=== PATIENT | female | born 1995 | race Caucasian/White ===

== ENCOUNTER 2022-02-04 11:56 | Emergency (ER) | payer OTHER, SELFPAY ==
[2022-02-04 12:13] VITALS: BP 122/81; PULSE 84; RESP 18; TEMP 36.8; O2SAT 99
--- NOTE | 2022-02-04 12:19 | ED.SKABFB ---
HPI - Skin/Abscess/Foreign Bdy General Chief complaint: Skin/Abscess/Foreign Body Stated complaint: rash Time Seen by Provider: 02/04/22 12:15 Source: patient Mode of arrival: ambulatory Limitations: no limitations History of Present Illness HPI narrative: Ms. Doshi is a 26-year-old female patient presenting to the clinic today with complaints of a rash on her abdomen, back, and chest. Reports that she went swimming on Friday in [place] and developed this rash there after. She reports that the rash is itchy but not painful. States she is tried some lotion it has helped some. Denies that the rash is spreading. Related Data Home Medications Medication Instructions Recorded Confirmed bupropion HCl 150 mg 24 hr tablet, 150 mg PO DAILY 02/04/22 02/04/22 extended release metformin 500 mg tablet 500 mg BID 02/04/22 02/04/22 norgestimate 0.25 mg-ethinyl 1 tablet DAILY 02/04/22 02/04/22 estradiol 35 mcg tablet (Rayna) Allergies Allergy/AdvReac Type Severity Reaction Status Date / Time banana AdvReac Gastrointestinal Verified 02/04/22 12:21 Upset Review of Systems Review of Systems: Pertinent positives per HPI. Patient denies any fever, chills, headache, visual changes, dizziness, cough, runny nose, sore throat, shortness of breath, chest pain, palpitations, nausea, vomiting, diarrhea, constipation, abdominal pain, or any urinary issues. PMFSH Comments At the time of my signature, I reviewed and agree with the nursing past medical, surgical, social, and family history. There is no relevant family history pertinent to the patient complaint. Exam Narrative: General: Well-developed, well nourished, in no apparent distress Head: Normocephalic, atraumatic. Cardio: Regular rate and rhythm, s1 and s2 normal, no murmur appreciated. Resp: Clear to auscultation bilaterally, no rhonchi, rales, wheezing or rubs. Integumentary: [place], warm, and dry, intact without lesion, pinpoint mildly raised red itchy rash without blistering or pustules. Course Course Emergency Course: Portions of this record may have been created with voice recognition software. Level of Care: Express Care Visit Vital Signs Vital signs: Vital Signs Temperature 36.8 C 02/04/22 12:13 Pulse Rate 84 02/04/22 12:13 Respiratory Rate 18 02/04/22 12:13 Blood Pressure 122/81 02/04/22 12:13 Pulse Oximetry 99 02/04/22 12:13 Oxygen Delivery Room Air 02/04/22 12:13 Temperature 36.8 C 02/04/22 12:13 Pulse Rate 84 02/04/22 12:13 Respiratory Rate 18 02/04/22 12:13 Blood Pressure 122/81 02/04/22 12:13 Pulse Oximetry 99 02/04/22 12:13 Oxygen Delivery Room Air 02/04/22 12:13 Vital signs reviewed MDM - Skin/Abscess/Foreign Bdy MDM Narrative Medical decision making narrative: At the time of visit patient is resting comfortably on the exam table. I suspect that she has a dermatitis rash from being in the [place]. I will send in a prescription for some triamcinolone cream as well as some prednisone to help alleviate her rash. Supportive measures were discussed with the patient she voiced understanding of discharge instructions and agrees to treatment plan. Differential Diagnosis Differential diagnosis: Likely cellulitis, eczema, insect bites and contact dermatitis Discharge Plan Discharge Clinical Impression: Dermatitis Patient Disposition: Home, Self-Care Condition: Stable Instructions: Antibiotic Form, Dermatitis (ED) Additional Instructions: Prednisone and triamcinolone cream as prescribed May take Benadryl 25 to 50 mg every 6 hours as needed for itching Avoid hot showers Avoid scratching May apply cool compresses to the affected areas to help alleviate itching Follow-up with your PCP in 3 to 5 days if symptoms persist or sooner if they worsen Prescriptions: New prednisone 20 mg tablet 40 mg PO DAILY 5 Days Qty: 10 0RF triamcinolone acetonide 0.1 % cream 1 applic
== END 2022-02-04 12:25 | disposition home or self-care (01) ==
PROVIDERS: Emergency Provider Nurse Practitioner Family; PCP Family Medicine
DX: L30.9 Dermatitis, unspecified (principal); E28.2 Polycystic ovarian syndrome; F41.9 Anxiety disorder, unspecified; F32.A Depression, unspecified
CPT/HCPCS: 99213; G0463

== ENCOUNTER 2023-03-15 12:57 | Emergency (ER) | payer OTHER, SELFPAY ==
--- NOTE | 2023-03-15 12:58 | ED.GENADULT ---
HPI - General Adult General Chief complaint: Skin/Abscess/Foreign Body Stated complaint: Lt Breast Irritation Time Seen by Provider: 03/15/23 12:58 Source: patient Mode of arrival: ambulatory Limitations: no limitations History of Present Illness HPI narrative: 19-year-old female patient presents to the [facility] with complaints of left breast pain for the past 2-3 days. Patient states she has had fevers as high as 101, left breast tenderness that goes to the nipple nipple to her armpit and states it feels very hot and tender to the touch. Patient states she has been exclusively pumping the breast milk. 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 Related Data Home Medications Medication Instructions Recorded Confirmed bupropion HCl 150 mg 24 hr tablet, 150 mg PO DAILY 02/04/22 03/15/23 extended release metformin 500 mg tablet 500 mg BID 02/04/22 03/15/23 blood sugar diagnostic (OneTouch 03/15/23 03/15/23 Ultra Test strips) vit#24-iron amino acid 1 tablet PO DAILY 03/15/23 03/15/23 chelat-folic acid 30 mg-975 mcg tablet Allergies Allergy/AdvReac Type Severity Reaction Status Date / Time banana AdvReac Intermediate Gastrointestinal Verified 03/15/23 13:00 Upset Review of Systems Review of Systems: CONSTITUTIONAL: Denies fever, chills, or sweats. EYES: Denies visual changes, redness, or discharge. ENT: Denies rhinorrhea, congestion, sore throat, or otalgia. CARDIOVASCULAR: Denies chest pain, palpitations, or edema. RESPIRATORY: Denies cough or dyspnea. GASTROINTESTINAL: Denies abdominal pain, nausea, vomiting, or diarrhea. GENITOURINARY: Denies dysuria or hematuria. SKIN: Denies rash or itching. Positive left breast pain MUSCULOSKELETAL: Denies back pain, joint pain, or myalgia. NEUROLOGIC: Denies headache, numbness, or weakness. PSYCHIATRIC: Denies anxiety or depression. PMFSH Surgical History Surgical History (Updated 03/15/23 @ 13:01 by ROYA Thomas) History of orthopedic surgery Right knee Comments At the time of my signature I agree with nursing past medical history, surgical, social, and family history. There is no relevant family history pertinent to the presenting complaint. Exam Narrative: GENERAL: Well-appearing, well-nourished, and in no acute distress. HEAD: Normocephalic, atraumatic. EYES: PERRLA and EOMI. ENT: Nares clear, no rhinorrhea or epistaxis. Mucous membranes moist. NECK: Supple. No lymphadenopathy CHEST: Clear to auscultation. No respiratory distress. HEART: Regular rate and rhythm. No murmur heard. Normal peripheral pulses. ABDOMEN: Soft, nontender, nondistended, normal active bowel sounds. EXTREMITIES: Normal range of motion. No edema. SKIN: Warm, dry, no rash. patient does have warmth noted to the left lateral breast no obvious erythema or streaking noted. No pus coming from the nipple. The left breast is very tender to the touch. NEURO: No focal deficits. Alert and oriented x3. Course Course Level of Care: Express Care Visit Vital Signs Vital signs: Vital Signs Temperature 37.3 C 03/15/23 13:05 Pulse Rate 105 H 03/15/23 13:05 Respiratory Rate 16 03/15/23 13:05 Blood Pressure 116/73 03/15/23 13:05 Pulse Oximetry 99 03/15/23 13:05 Oxygen Delivery Room Air 03/15/23 13:05 Temperature 37.3 C 03/15/23 13:05 Pulse Rate 105 H 03/15/23 13:05 Respiratory Rate 16 03/15/23 13:05 Blood Pressure 116/73 03/15/23 13:05 Pulse Oximetry 99 03/15/23 13:05 Oxygen Delivery Room Air 03/15/23 13:05 vital signs reviewed Medical Decision Making MDM Narrative Medical decision making narrative: Plan care patient is discharged home with antibiotics for mastitis. Discussed with patient that she can take Tylenol for pain and use warm compresses to help with pain. 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 Discussed with patient that shake it should continue to pump/dahiana
[2023-03-15 13:05] VITALS: BP 116/73; PULSE 105; RESP 16; TEMP 37.3; O2SAT 99
== END 2023-03-15 13:19 | disposition home or self-care (01) ==
PROVIDERS: Emergency Provider Nurse Practitioner Family; PCP Family Medicine
DX: N61.0 Mastitis without abscess (principal)
CPT/HCPCS: 99213; G0463

== ENCOUNTER 2024-10-27 07:27 | Outpatient (RCR) | payer OTHER, SELFPAY ==
[2024-09-18 09:40] VITALS: BP 124/62; PULSE 100
[2024-09-22 09:25] VITALS: BP 110/67; PULSE 93
[2024-09-25 09:28] VITALS: BP 109/67; PULSE 98
[2024-09-29 08:45] VITALS: BP 110/67; PULSE 92
[2024-10-02 09:46] VITALS: BP 115/66; PULSE 93
[2024-10-06 08:22] VITALS: BP 124/69; PULSE 98
[2024-10-09 14:12] VITALS: BP 121/65; PULSE 105
[2024-10-13 10:06] VITALS: BP 112/69; PULSE 88
--- NOTE | 2024-10-13 12:00 | PC.NURSE ---
Dr. Roman informed BPP 02/11, ULI is 15.8 cm, baby's growth is in the 18th percentile.
[2024-10-22 08:56] VITALS: BP 115/65; PULSE 97
--- NOTE | ~2024-10-27 | US_ITS ---
EXAMINATION: US OB follow up w BPP DATE: 09/29/2024 08:36 INDICATION: Intrauterine growth restriction. Third trimester. TECHNIQUE: Real-time pelvic ultrasound was performed. COMPARISON: Ultrasound 09/22/2024 FINDINGS: There is a single living fetus in breech presentation. The placenta is posterior and fundal. h eart rate is 150 beats per minute (bpm). The amniotic fluid index is 9.8 cm which is normal. The following biometric data were obtained: Biparietal diameter (BPD): 8.6 cm; head circumference (HC): 31.2 cm; abdominal circumference (AC): 30 .8 cm; femur length (FL): 6.8 cm. These measurements are concordant. Estimated weight is 2523 g +/- 378 g, which correlates with the 45th percentile when 11/04/24 is used as estimated date of delivery. As single measurements, these parameters are each equal to the following estimated gestational ages: BPD: 34 weeks 6 days. HC: 34 weeks 6 days. AC: 34 weeks 5 days. FL: 34 weeks 6 days. estimated gestational age based solely on measurements from this exam is 34 weeks 6 days +/- 2 weeks 3 days. Biophysical profile performed by the technologist: breathing (30 sec sustained breathing in 30 minutes): 2 out of 2 movement (3 gross body movements in 30 minutes): 2 out of 2 tone (one episode of xiunmto-dnmpdxevq-dpzuzjo limb movement): 2 out of 2 Amniotic fluid pocket (2 cm): 2 out of 2 Total score: 8 out of 8 IMPRESSION: 1. Single living fetus in breech presentation. 2. Estimated weight is 2523 g +/- 378 g, which correlates with the 45th percentile when 11/04/24 is used as estimated date of delivery. 3. Biophysical profile 8 out of 8. Reviewed, dictated and finalized at location []
--- NOTE | ~2024-10-27 | US_ITS ---
EXAMINATION: US OB follow up w BPP DATE: 10/27/2024 09:21 INDICATION: Small for gestational age during third trimester of TECHNIQUE: Real-time pelvic ultrasound was performed. The interpreting radiologist was not present fo r the study. COMPARISON: None. FINDINGS: There is a single living fetus in vertex presentation. The placenta is posterior fundal. heart rate is 148 beats per minute (bpm). Amniotic fluid volume is subjectively normal pocket measurement of 7.4 cm The following biometric data were obtained: BPD: 9.0 cm -> 36 weeks 2 days Head circumference: 33.0 cm -> 37 weeks 4 days Abdominal circumference: 33.4 cm -> 37 weeks 2 days Femur length: 7.0 cm -> 35 weeks 6 days These measurements are concordant. Head circumference to abdominal circumference ratio: 0.99 (normal range 0.92-1.05). Estimated weight: 3080 g (+/-) 462 g, 6 lbs 13oz (+/-) 1 lb. 0 oz Biophysical profile performed by the technologist: breathing (30 sec sustained breathing in 30 minutes): 2 out of 2 movement (3 gross body movements in 30 minutes: 2 out of 2 tone (one episode of xeghlcl-uwpekmnkx-zmudaak limb movement): 2 out of 2 Amniotic fluid pocket (2 cm): 2 out of 2 Total score: 8 out of 8 IMPRESSION: 1. Single living fetus in vertex presentation. 2. Biophysical profile 8 out of 8. 3 Estimated weight is 23rd percentile by Hadlock criteria when 11/04/2024 is used as the estimate d date of delivery (VANCE). Please correlate with clinical information or earlier ultrasounds for most accurate VANCE. Reviewed, dictated and finalized at location A. IMPRESSION: 1. Single living fetus in vertex presentation. 2. Biophysical profile 8 out of 8. 3 Estimated weight is 23rd percentile by Hadlock criteria when 11/04/2024 i s used as the estimated date of delivery (VANCE). Please correlate with clinical information or earlier ultrasounds for most accurate VANCE.
--- NOTE | ~2024-10-27 | US_ITS ---
EXAMINATION: US OB follow up w BPP DATE: 10/13/2024 10:07 INDICATION: Estimated weight/growth percentile, amniotic fluid index and biophysical profile du ring third trimester . TECHNIQUE: Real-time pelvic ultrasound was performed. The interpreting radiologist was not present fo r the study. COMPARISON: None. FINDINGS: There is a single living fetus in vertex presentation. The placenta is posterior fundal. heart rate is 148 beats per minute (bpm). Normal amniotic fluid index of 15.8 cm. The following biometric data were obtained: BPD: 8.8 cm -> 35 weeks 3 days Head circumference: 32.7 cm -> 37 weeks 1 days Abdominal circumference: 31.5 cm -> 35 weeks 3 days Femur length: 6.7 cm -> 34 weeks 3 days These measurements are concordant. Head circumference to abdominal circumference ratio: 1.04 (normal range 0.93-1.09). Estimated weight: 2653 g (+/-) 398 g, 5 lbs 14 oz (+/-) 14 oz Biophysical profile performed by the technologist: breathing (30 sec sustained breathing in 30 minutes): 2 out of 2 movement (3 gross body movements in 30 minutes: 2 out of 2 tone (one episode of rndslit-qsvkpykal-ubvxjkn limb movement): 2 out of 2 Amniotic fluid pocket (2 cm): 2 out of 2 Total score: 8 out of 8 IMPRESSION: 1. Single living fetus in vertex presentation. 2. Normal amniotic fluid index of 15.8 cm. 3. Biophysical profile 8 out of 8. 4. Estimated weight is 18th percentile by Hadlock criteria when 11/04/2024 is used as the estima heather date of delivery (VANCE). Please correlate with clinical information or earlier ultrasounds for mos t accurate VANCE. Reviewed, dictated and finalized at location B. IMPRESSION: 1. Single living fetus in vertex presentation. 2. Normal amniotic fluid index of 15.8 cm. 3. Biophysical profile 8 out of 8. 4. Estimated weight is 18th percentile by Hadlock criteria when 11/04/2024 is used as the estimated date of delivery (VANCE). Please correlate with clinica l information or earlier ultrasounds for most accurate VANCE.
--- NOTE | ~2024-10-27 | US_ITS ---
EXAMINATION: US OB BPP wo non-stress DATE: 10/22/2024 08:54 INDICATION: Small for gestational age. Assess biophysical profile during third trimester . TECHNIQUE: Real-time pelvic ultrasound was performed. The interpreting radiologist was not present fo r the study. COMPARISON: 10/23/2024 FINDINGS: There is a single living fetus in vertex presentation. The placenta is posterior fundal. heart rate is 140 beats per minute (bpm). Amniotic fluid volume is subjectively normal with normal deepest vertical pocket measurement of 5.0 cm. Biophysical profile performed by the technologist: breathing (30 sec sustained breathing in 30 minutes): 2 out of 2 movement (3 gross body movements in 30 minutes): 2 out of 2 tone (one episode of fegwzas-kfddwjmmw-arjcdmu limb movement): 2 out of 2 Amniotic fluid pocket (2 cm): 2 out of 2 Total score: 8 out of 8 IMPRESSION: 1. Single living fetus in vertex presentation with heart rate of 140 bpm. 2. Biophysical profile 8 out of 8. Reviewed, dictated and finalized at location A.
--- NOTE | ~2024-10-27 | US_ITS ---
EXAMINATION: US OB BPP wo non-stress DATE: 09/22/2024 09:00 INDICATION: Small for gestational age during third trimester TECHNIQUE: Real-time pelvic ultrasound was performed. The interpreting radiologist was not present fo r the study. COMPARISON: None. FINDINGS: There is a single living fetus in vertex presentation. The placenta is posterior fundal. heart rate is 140 beats per minute (bpm). Amniotic fluid volume is subjectively normal with normal deepest vertical pocket measurement of 5.5 cm. Biophysical profile performed by the technologist: breathing (30 sec sustained breathing in 30 minutes): 2 out of 2 movement (3 gross body movements in 30 minutes): 2 out of 2 tone (one episode of vcorgrw-krvtkwzbp-ljiwpwc limb movement): 2 out of 2 Amniotic fluid pocket (2 cm): 2 out of 2 Total score: 8 out of 8 IMPRESSION: 1. Single living fetus in vertex presentation with heart rate of 140 bpm. 2. Biophysical profile 8 out of 8. Reviewed, dictated and finalized at location A.
--- NOTE | ~2024-10-27 | US_ITS ---
EXAMINATION: US OB BPP wo non-stress DATE: 10/06/2024 09:16 INDICATION: Intrauterine growth retardation during third trimester TECHNIQUE: Real-time pelvic ultrasound was performed. The interpreting radiologist was not present fo r the study. COMPARISON: None. FINDINGS: There is a single living fetus in vertex presentation. The placenta is posterior fundal. heart rate is 140 beats per minute (bpm). Amniotic fluid volume is subjectively normal with normal deepest vertical pocket measurement of 6.5 cm Biophysical profile performed by the technologist: breathing (30 sec sustained breathing in 30 minutes): 2 out of 2 movement (3 gross body movements in 30 minutes): 2 out of 2 tone (one episode of jgnokqw-ungwllcfg-dkpfplt limb movement): 2 out of 2 Amniotic fluid pocket (2 cm): 2 out of 2 Total score: 8 out of 8 IMPRESSION: 1. Single living fetus in vertex presentation with heart rate of 140 bpm. 2. Biophysical profile 8 out of 8. Reviewed, dictated and finalized at location A.
[2024-10-27 08:39] VITALS: BP 112/71; PULSE 92
--- NOTE | 2024-10-27 09:30 | PC.NURSE ---
Dr. Roman returned page. Notified him of reactive NST, BPP 02/11, ULI 15.8 and EFW 18th percentile
== END 2024-12-17 23:59 | disposition home or self-care (01) ==
LOC: ANHOBOP 07:27
PROVIDERS: PCP Nurse Practitioner Family; Visit Provider Obstetrics & Gynecology
DX: O36.5930 Maternal care for other known or suspected poor fetal growth, third trimester, not applicable or unspecified (principal); Z3A.33 33 weeks gestation of pregnancy; Z3A.34 34 weeks gestation of pregnancy; Z3A.35 35 weeks gestation of pregnancy; Z3A.36 36 weeks gestation of pregnancy; Z3A.38 38 weeks gestation of pregnancy
CPT/HCPCS: 59025; 76816; 76819

== ENCOUNTER 2024-11-04 15:57 | Inpatient (IN) | payer OTHER, SELFPAY ==
[2024-11-04] VITALS (114 sets, daily range): BP systolic 64–153; BP diastolic 22–136; PULSE 81–141; TEMP 36.7–37.1; O2SAT 95–100; BMI 39.7
--- OUTSIDE RECORDS SUMMARY | 2024-11-04 16:15 | XMS_ITS | Encounter Summary ---
Author Organization [facility] Address [address] [place] [id number] Care Team Providers Care Industrial Tech Instructor Name Role Phone Yessica Goldman NP Primary Care Provider + [phone] Reason for Visit * Reason Comments Ultrasound (SCAN) Encounter Details Date Type Department Care Team ([facility] Contact Info) Description 10/27/2024 Scan HEALTH INFO [facility] Scanned, Doc Med Group Ultrasound (SCAN) Social History Tobacco Use Types Packs/Day Years Used Date Smoking Tobacco: Never Smokeless Tobacco: Never Comments:nonsmoker Alcohol Use Standard Drinks/Week Comments Not Currently 0 (1 standard drink = 0.6 oz pur e alcohol) Humiliation, Afraid, Rape, and Kick questionnair e Answer Date Recorded Within the last year, have y ou been afraid of your partner or ex-partner? No 02/06/2023 Within the last year, have y ou been humiliated or emotionally abused in other ways by your partner or ex-partner? No Within the last year, have y ou been kicked, hit, slapped, or otherwise physically hurt by your partner or ex-partner? No 02/06/2023 Within the last year, have y ou been raped or forced to have any kind of sexual activity by your partner or ex-partner? No 02/06/2023 Social Connection and Isolation Panel [NHANES] A nswer Date Recorded In a typical week, how many times do you talk on the phone with family, friends, or neighbors? Three times a week 02/06/2023 How often do you get togethe r with friends or relatives? Three times a week 02/06/2023 How often do you attend chur or anabaptist services? Patient declined 02/06/2023 Do you belong to any clubs o r organizations such as yazdanism groups, unions, fraternal or athletic groups, or school groups? Patient declined 02/06/2023 How often do you attend meet ings of the clubs or organizations you belong to? Patient declined 02/06/2023 Are you , , di vorced, , never , or living with a partner? 02/06/2023 AUDIT-C Answer Date Recorded Q1: How often do you have a drink containing alcohol? Never 02/06/2023 Q2: How many drinks containi ng alcohol do you have on a typical day when you are drinking? Patient does not drink Q3: How often do you have si x or more drinks on one occasion? Never 02/06/2023 Overall Financial Resource Strain (CARDIA) Answe r Date Recorded How hard is it for you to pa y for the very basics like food, housing, medical care, and heating? Not hard at all 02/06/2023 PHQ-2 Answer Date Recorded Patient Health Questionnaire-2 Score 0 10/25/2024 Exercise Vital Sign Answer Date Recorde d On average, how many days pe r week do you engage in moderate to strenuous exercise (like a brisk walk)? 3 days 02/06/2023 On average, how many minutes do you engage in exercise at this level? 30 min 02/06/2023 Hunger Vital Sign Answer Date Recorded Within the past 12 months, y ou worried that your food would run out before you got the money to buy more. Never true 02/07/20 23 Within the past 12 months, t he food you bought just didn't last and you didn't have money to get more. Never true 02/06/2023 PRAPARE - Transportation Answer Date Re corded In the past 12 months, has l ack of transportation kept you from medical appointments or from getting medications? No 09/2022 In the past 12 months, has l ack of transportation kept you from meetings, work, or from getting things needed for daily living? No 02/06/2023 Housing Stability Vital Sign Answer Ayo e Recorded In the last 12 months, was t here a time when you were not able to pay the mortgage or rent on time? No 02/06/2023 In the last 12 months, how many places have you lived? 1 02/06/2023 In the last 12 months, was t here a time when you did not have a steady place to sleep or slept in a mcc (including now)? No 02/06/2023 Comments Yes Sex and Gender Information Value Date Recorded Sex Assigned at Not on file Legal Sex Female 8:50 PM CDT Gender Identity Not on file Sexual Orientation Not on file Occupation Industry Job Start Date Job End Date Not on file Not on file Not on file Not on file Not on file Not on file Not on file Not on file documented as of this encounter Functional Status * Are you deaf or do you have serious difficulty hearing Answer Date of Assessment Author Status No 02/06/2023 9:31 AM CDT Kira Akers R N Active * Are you blind or do you have serious difficulty seeing, even when wearing glasses? Answer Date of Assessment Author Status No 02/06/2023 9:31 AM CDT Kira Akers R N Active * Do you have serious difficulty walking or climbing stairs? Answer Date of Assessment Author Status No 02/06/2023 9:31 AM MANJINDERT Kira Akers R N Active * Do you have difficulty dressing or bathing? Answer Date of Assessment Author Status No 02/06/2023 9:31 AM CDT Kira Akers R N Active * Because of a physical, mental, or emotional condition, do you have difficulty doing errands alone such as visiting a doctor's office or shopping? Answer Date of Assessment Author Status No 02/06/2023 9:31 AM Kira Jo R N Active documented as of this encounter Mental Status * Because of a physical, mental, or emotional condition, do you have serious difficulty concentrating, remembering, or making decisions? Answer Entry Date Author Status No 02/06/2023 9:31 AM Kira Jo R N Active documented in this encounter Plan of Treatment Not on file documented as of this encounter Procedures Procedure Name Priority Date/Time Associated Diagnosis Comments ULTRASOUND GENERIC (SCAN ORDER) 10/27/2024 documented in this encounter Results * ULTRASOUND GENERIC (SCAN ORDER) (10/27/2024) Anatomical Region Laterality Modality Other 10/27/2024 us Doc Med Group Scanned SCANNING Final Resu lt documented in this encounter Visit Diagnoses Not on filedocumented in this encounter Additional Health Concerns Assessment Noted Time PHQ-9 Depression Total Score: 10 024 3:47 PM CDT documented as of this encounter Care Teams Industrial Tech Instructor Relationship Specialty Start Date End Date Yessica Goldman, BEAN [id number] [facility] [address] [place], [place] [id number] PCP - General Nurse Practitioner Family 07/21/23 documented as of this encounter
--- OUTSIDE RECORDS SUMMARY | 2024-11-04 16:15 | XMS_ITS | Clinical Summary ---
Author Organization [facility] Address [address] [place] [address] Care Team Providers Care Special Diet Cook Name Role Phone Yessica Goldman NP Primary Care Provider [phone] Allergies No known active allergies Medications Cholecalcifero l (VITAMIN D-3 OR) Take 1,000 mg by mouth daily. Active buPROPion XL (WELLBUTRIN XL) 150 MG 24 hr tabletIndicati ons:IRAJ (generalized anxiety disorder) Take 1 tablet (150 mg total) by mouth daily. 90 tablet 1 12/31/19 24 Active levothyroxine (SYNTHROID) 25 MCG tablet Take 1 tablet (25 mcg total) by mouth daily. Active aspirin EC (ECOTRIN) 81 MG tablet Take 1 tablet (81 mg total) by mouth daily. Active ( VITAMINS) 28-0.8 MG tablet Take 1 tablet by mouth daily. Active metFORMIN 500 MG tablet Take 2 tablets (1,000 mg total) by mouth daily. 04/02/20 20 025 Discontinued(Pt . elected to discontinue med) norgestimate-e thinyl estradiol (FRANCIS) 0.25-35 MG-MCG tablet Take 1 tablet by mouth daily. 025 Discontinued Active Problems Problem Noted Date Diagnosed Date Vaginal delivery (HHS/HCC) 02/09/2023 (HHS/HCC) 02/06/2023 Gestational diabetes (HHS/HCC) 02/06/2023 IRAJ (generalized anxiety disorder) 11/22/2021 Moderate episode of recurrent major depressive d isorder 11/22/2021 Obesity 10/02/2017 Comments Yes Resolved Problems Problem Noted Date Diagnosed Date Resolved Date Depression 10/02/2017 11/22/2021 Encounter for preventive health examination 10/02/2017 03/17/2020 Wears contact lenses 10/02/2017 020 Wears glasses 10/02/2017 03/17/2020 Encounters Date Type Department Care Team Description 10/27/2024 Scan HEALTH INFO SRVCS Scanned, [facility] Ultrasound (SCAN) 10/25/2024 10:00 AM CDT Office Visit [facility] Internal [facility] [address] [phone] Yessica Goldman, SALES SERVICE COORDINATOR Cough (Head congestion, drainage, sore throat X 1 week ) 10/25/2024 Travel 10/22/2024 Scan HEALTH INFO SRVCS Scanned, Doc [facility] Ultrasound (SCAN) 10/13/2024 Scan HEALTH INFO SRVCS Scanned, Doc [facility] Ultrasound (SCAN) 10/06/2024 Scan HEALTH INFO SRVCS Scanned, Doc [facility] Ultrasound (SCAN) 09/29/2024 Scan HEALTH INFO SRVCS Scanned, Doc [facility] Ultrasound (SCAN) 09/22/2024 Scan HEALTH INFO SRVCS Scanned, Doc [facility] Ultrasound (SCAN) from Last 3 Months Immunizations Immunization Administration Dates Next Due COVID-19 Vaccine (Generic) 11/16/2020 Diphtheria and Tetanus Toxoi ds Adsorbed 02/14/2009 Dtap (Acel-Immune) 01/25/2000, 6,02/25/1995,01/02,1994 Hepatitis A (Havrix [address]) 02/14/2009 Hepatitis B Pediatric 06/12/1995,1994,10/1994 Hib (Prohibit) 01/19/1996, 5,01/02/1995,11/07 Influenza (Generic) 07/30/2021(Deferred: Patient Refused),05/28/2013,07/19/2012 Influenza Adult (Generic) 07/18/2022 MMR (MMRII) 01/25/2000,10/02/1995 Meningococcal (Menomune) 02/14/2009 PFIZER COVID-19 (ORIGINAL FO RMULATION, PURPLE CAP) mRNA, LNP-S, PF, 30 MCG/0.3 ML DOSE 02/15/2021 Polio IPV (Ipol) 01/25/2000 Polio Opv (Generic) 01/19/1996, 5,01/02/1995,11/07 Tdap (Generic) 08/09/2024,12/09/2022 Family History Medical History Relation Comments Hyperlipidemia Father Arthritis Maternal Grandmother Diabetes Maternal Grandmother Miscarriages / Stillbirths Maternal Grandmother Hypertension Mother Cancer Paternal Grandfather Depression Paternal Grandmother Mental Health Paternal Grandmother Miscarriages / Stillbirths Paternal Grandmother Relation Status Comments Father Alive Maternal Grandmother Mother Alive Paternal Grandfather Paternal Grandmother Social History Tobacco Use Types Packs/Day Years Used Date Smoking Tobacco: Never Smokeless Tobacco: Never Tobacco Cessation:Counseling Given: Not Answered Comments:nonsmoker Alcohol Use Standard Drinks/Week Comments Not [...] 02/06/2023 How often do you attend chur ch or denominational services? Patient declined 02/06/2023 Do you belong [...] place to sleep or slept in a retirement (including now)? No 02/06/2023 Comments Yes Sex [...] file Not on file Not on file Last Filed Vital Signs Vital Sign Reading Time Taken Comments Blood Pressure 115/78 10/25/2024 9:54 AM CDT Pulse 111 10/25/2024 9:54 AM CDT Temperature 36.8 C (98.2 F) 10/25/2024 9:54 AM CDT Respiratory Rate 20 10/25/2024 9:54 AM CDT Oxygen Saturation 96% 10/25/2024 9:54 AM CDT Inhaled Oxygen Concentration - - Weight 111.9 kg (246 lb 9.6 oz) 10/25/2024 9:54 AM CDT Height 162.6 cm (5' 4 ) 10/25/2024 9:54 AM CDT Body Mass Index 42.33 10/25/2024 9:54 AM CDT Plan of Treatment Health Maintenance Due Date Last Done Comments Cervical Cancer Screening Pap Smear (Age 30 to 64) Every 3 Years 1994 Annual Physical 10/05/2023 10/04/2022 COVID-19 Vaccine ( season) 2024 03/08/2021, 02/15/2021, 11/16/2020 Cervical Cancer Screening Pap with HPV Testing (Age 30 to 64) Every 5 Years 2024 Cervical Cancer Screening with HPV 2024 DTaP, Tdap and Td Vaccines (8 - Td or Tdap) 08/09/2034 08/09/2024, 12/09/2022, 02/14/2009, Additional history exists RSV Immunization or 60+ Years (1 - 1-dose 75+ series) 2069 Hepatitis B Vaccines Completed 06/12/1995, 1994, 1994 Meningococcal Vaccine Aged Out 02/14/2009 No ching jose eligible based on patient's age to complete this topic Hepatitis C Completed 03/24/2024, 07/17/2022 PHQ-2 (Physician [place]) Completed 10/25/2024 HPV Vaccines Aged Out No longer eligi ble based on patient's age to complete this topic Meningococcal B Vaccine Aged Out No l onger eligible based on patient's age to complete this topic Pneumococcal Vaccine: Pediatrics (0 to 5 Years) and At-Risk Patients (6 to 49 Years) Aged Out No longer eligible based on patient's age to complete this topic RSV Immunizations Under 20 Months Aged Out No longer eligible based on patient's age to complete this topic Procedures Procedure Name Priority Date/Time Associated Diagnosis Comments ULTRASOUND GENERIC (SCAN ORDER) 10/27/2024 ULTRASOUND GENERIC (SCAN ORDER) 10/22/2024 ULTRASOUND GENERIC (SCAN ORDER) 10/13/2024 ULTRASOUND GENERIC (SCAN ORDER) 10/06/2024 ULTRASOUND GENERIC (SCAN ORDER) 09/29/2024 ULTRASOUND GENERIC (SCAN ORDER) 09/22/2024 HEPATITIS C ANTIBODY Routine 03/24/2024 3:17 PM CDT Lactating mother (HHS/HCC) Encounter for other specified screening (HHS/HCC) Obesity complicating peripregnancy, antepartum, unspecified trimester (HHS/HCC) Obesity, unspecified Endocrine, nutritional and metabolic diseases complicating , unspecified trimester (HHS/HCC) from Last 3 Months or Most Recently Relevant to Health Maintenance Results * ULTRASOUND GENERIC (SCAN ORDER) (10/27/2024) Only the most recent of6 resultswithin the time period is included. Anatomical Region Laterality Modality Other 10/27/2024 us [facility] Scanned SCANNING Final Resu lt * HEPATITIS C ANTIBODY (03/24/2024 3:17 PM CDT) HEPATITIS C AB NON-REACTI VE NON-REACTI VE 03/25/2024 12:31 PM CDT [facility] 03/24/2024 3:17 PM CDT us Gaviota Benítez CNM [facility] Final Result [facility] [address] [place] [address], from Last 3 Months or Most Recently Relevant to Health Maintenance Insurance [employer] Advance Directives * Full Code (Latest Code Status on File) Date Activated Date Inactivated Comments 02/06/2023 7:56 AM 02/07/2023 4:29 PM * Full Code Date Activated Date Inactivated Comments 02/02/2023 10:55 AM 02/02/2023 4:02 PM * Full Code Date Activated Date Inactivated Comments 02/01/2023 11:41 AM 02/01/2023 1:43 PM * Full Code Date Activated Date Inactivated Comments 01/25/2023 10:32 AM 01/25/2023 1:45 PM * Full Code Date Activated Date Inactivated Comments 01/17/2023 7:44 AM 01/17/2023 10:14 AM Care Teams Special Diet Cook Relationship Specialty [place] [id number] [address] PCP - General Nurse Practitioner Family 07/21/23
--- OUTSIDE RECORDS SUMMARY | 2024-11-04 16:15 | XMS_ITS | Encounter Summary ---
Author Organization [facility] Address [address] [place] [address] Care Team Providers Care Manager Statistical Programming Name Role Phone Chiynerefaizan Mónica [facility] Primary Care Provider + None, Provider Primary Care Provider Yessica Nelson NP Primary Care Provider [phone] Encounter Details Date Type Department Care Team (Late Contact Info) Description 07/04/2022 [employer] Message [employer] [facility] Family [facility] [address] [place] [phone] [employer]), [facility] Provider Appointment Social History Tobacco Use Types Packs/Day Years Used Date Smoking Tobacco: Never Smokeless Tobacco: Never Comments:nonsmoker Alcohol Use Standard Drinks/Week Comments Yes 0 (1 standard drink = 0.6 oz pur e alcohol) rare AUDIT-C Answer Date Recorded Frequency of Alcohol Consumption Never 11/20/2018 Average Number of Drinks Not on file 019 Frequency of Binge Drinking Not on file 11/04 PHQ-2 Answer Date Recorded PHQ-2 Score - If the patient scores above 3, please move on to questions 3-9 3 11/19/2021 Comments No Sex and Gender Information Value Date Recorded [...] on file documented as of this encounter Plan of Treatment Not on file documented as of this encounter Visit Diagnoses Not on filedocumented in this encounter Additional Health Concerns Infection Onset Date Last Indicated Resolved Time COVID-19 Rule Out 01/22/2023 01/22/2023 01/22/2023 10:25 AM CDT COVID-19 Rule Out 01/22/2023 01/22/2023 01/22/2023 1:24 PM CDT COVID-19 Rule Out 01/22/2023 01/22/2023 01/24/2023 11:00 AM CDT COVID-19 Rule Out 07/02/2023 07/02/2023 07/02/2023 11:29 AM BISQUE CLEANER COVID-19 Rule Out 07/02/2023 07/02/2023 07/02/2023 11:32 AM BISQUE CLEANER COVID-19 Rule Out 07/02/2023 07/02/2023 07/02/2023 1:07 PM BISQUE CLEANER Assessment Noted Time PHQ-9 Depression Total Score: 10 11/19/ 022 2:17 PM CDT documented as of this encounter Care Teams Manager Statistical Programming Relationship Specialty Start Date End Date Mónica De La O FNP- PCP - General Nurse Practitioner Family 07/30/2104/07/23 None, Provider, PCP - General UNKNOWN PHYSICIAN SPECIALTY 07/02/23 Yessica Goldman, FLIGHT FOLLOWER [id number] [address] PCP - General Nurse Practitioner Family 07/21/23 documented as of this encounter
--- OUTSIDE RECORDS SUMMARY | 2024-11-04 16:15 | XMS_ITS | Encounter Summary ---
Author Organization [facility] Address [address] [place] [address] Care Team Providers Care Cake Inspector Name Role Phone Hernan Bond MD Primary Care Provider [phone] Mónica De La O [facility] Primary Care Provider + None, Provider Primary Care Provider Yessica Nelson NP Primary Care Provider [phone] Encounter Details Date Type Department Care Team (Late st Contact Info) Description 02/28/2021 [id number] Message Enc [facility] Family [facility] Internal Medicine [facility] [address] [place] [phone] Mónica De La O [place] [address] [place] [phone] RE: Medication Questions Social History Tobacco Use Types Packs/Day Years Used Date Smoking Tobacco: Never Smokeless Tobacco: Never Alcohol Use Standard Drinks/Week Comments Yes 0 (1 standard drink = 0.6 oz pur e alcohol) rare AUDIT-C Answer Date Recorded Frequency of Alcohol Consumption Never 11/20/2018 Average Number of Drinks Not on file 019 Frequency of Binge Drinking Not on file 11/04 PHQ-2 Answer Date Recorded PHQ-2 Score - If the patient scores above 3, please move on to questions 3-9 0 12/11/2020 Comments No Sex and Gender Information Value [...] Rule Out 07/02/2023 07/02/2023 07/02/2023 11:29 AM DIRECTOR SOCIAL SERVICE COVID-19 Rule Out 07/02/2023 07/02/2023 07/02/2023 11:32 AM DIRECTOR SOCIAL SERVICE COVID-19 Rule Out 07/02/2023 07/02/2023 07/02/2023 1:07 PM DIRECTOR SOCIAL SERVICE Assessment Noted Time PHQ-9 Depression Total Score: 0 12/12/19 11:11 AM CDT documented as of this encounter Care Teams Cake Inspector Relationship Specialty [place] [address] [facility] [place] [address] PCP - General FAMILY PRACTICE 11/19/18 07/29/21 Mónica De La O FNP- [id number] [facility] [address] PCP - General Nurse Practitioner Family 07/30/2104/07/23 None, Eric, PCP - General UNKNOWN PHYSICIAN SPECIALTY 07/02/23 [place] [id number] [facility] [address] [address] PCP - General Nurse Practitioner Family 07/21/23 documented as of this encounter
--- OUTSIDE RECORDS SUMMARY | 2024-11-04 16:16 | XMS_ITS | Clinical Summary ---
Author Organization [facility] [employer] Address [address] [place] [address] Care Team Providers Care Case Making Machine Operator Name Role Phone Jennifer Knutson MD Unavailable Source Comments [facility] [employer],non-owned Affiliates and Associated Physician Practices is amultiple site organization consisting of ambulatory clinics and hospital sitesin [place], [place], [place] and [place]. This disclosure is being madepursuant to the Care Everywhere program and may not contain all information available regarding this patient. Last updated 18.[facility] [employer] Allergies No known active allergies Medications * Be aware that medications may not be up to date on this document. Alwaysverify current medications with the patient. levothyroxine (Synthroid) 25 MCG tablet Take 1 (one) tablet by mouth once daily 04/06/2024 Active metFORMIN (Glucophage) 500 MG tablet Take 1 (one) tablet by mouth 2 times daily with morning and evening meal 11/19/2019 Active buPROPion XL 24hr (Wellbutrin-XL) 150 MG tablet Take 1 (one) tablet by mouth once daily 04/20/2021 Active Vit-DSS-Fe Fum-FA ( vitamin with iron) tablet Take 1 (one) tablet by mouth once daily Active vitamin D, ergocalciferol, (Drisdol) 1.25 MG (56478 UT) capsule Take 1 (one) capsule by mouth every 30 days Active aspirin EC (Ecotrin) 81 MG tablet Take 1 (one) tablet by mouth once daily Active Active Problems Problem Noted Date Diagnosed Date Glucose intolerance of 06/21/2024 Estimated Date of Delivery Comme nts Yes 11/04/2024 Based on last me nstrual period of 01/29/2024 Encounters Date Type Department Care Team Description 09/14/2024 7:40 AM CDT - 09/14/2024 11:59 PM CDT Hospital Encounter [facility] [address] [place] [address] Ladonna Harris MD Discharge Disposition: Home or Self Care 09/14/2024 7:30 AM CDT - 09/14/2024 7:39 AM CDT Hospital Encounter [facility] [address] [place] [id number] Ladonna Harris MD Discharge Disposition: Home or Self Care 09/06/2024 7:30 AM COFFEE BREAK ATTENDANT - 09/06/2024 11:59 PM COFFEE BREAK ATTENDANT Hospital Encounter [facility] [address] [place] [id number] Troy Kong MD Discharge Disposition: Home or Self Care 08/17/2024 Telephone [facility]/ EVALUATION UNIT [address] [place] [address] Gali Veliz APRN-ROTOR CASTING MACHINE SETUP OPERATOR Results 08/12/2024 Telephone [facility] MATERNAL/ EVALUATION UNIT [address] [place] [address] Bridgette Roman MD Results 08/11/2024 Orders Only [facility] MATERNAL/ EVALUATION UNIT [address] [place] [phone] Loretta Roach MD 08/10/2024 Telephone [facility] MATERNAL/ EVALUATION UNIT [address] [place] [phone] Joana Salvador Appointment 08/10/2024 Telephone [facility] MATERNAL/ EVALUATION UNIT [address] [place] [address] Joana Salvador Appointment 08/09/2024 7:20 AM COFFEE BREAK ATTENDANT - 08/09/2024 11:59 PM COFFEE BREAK ATTENDANT Hospital Encounter [facility] MATERNAL/ EVALUATION UNIT [address] [place] [address] Deepti Aragon MD Gross, Gilad A, MD Schell, Katherine A, ASSOCIATE ENGINEER-ROTOR CASTING MACHINE SETUP OPERATOR Discharge Disposition: Home or Self Care 08/09/2024 7:20 AM COFFEE BREAK ATTENDANT - 08/09/2024 11:59 PM COFFEE BREAK ATTENDANT Hospital Encounter [facility] MATERNAL/ EVALUATION UNIT [address] [place] [address] Deepti Aragon MD Gross, Gilad A, MD Discharge Disposition: Home or Self Care 08/09/2024 Travel from Last 3 Months Immunizations Immunization Administration Dates Next Due DT (AGE 7-ADULT) 02/14/2009 DTaP VACCINE IM (6wk-6yrs) 01/25/2000,,02/25/1995,01/02/1995,11/07 HEP A PEDS 2 DOSE 02/14/2009 HEP B VACCINE, PED/ADOL 06/12/1995,1994, HIB BOOSTER 01/19/1996,02/25/1995,01/02/1995 ,1994 INFLUENZA VACCINE 05/28/2013,07/19/2012 MENINGOCOCAL MENINGITIS 02/14/2009 MMR 01/25/2000,10/02/1995 POLIO IPV 01/25/2000 POLIO OPV 01/19/1996,02/25/1995,01/02/1995 ,1994 TDAP (7yrs+) 08/09/2024 Family History Medical History Relation Name Comments Diabetes - Type 2 Maternal Grandmother Hypertension Maternal Grandmother Renal Disease Maternal Grandmother Hypertension Mother Hypertension Paternal Grandmother Relation Name Status Comments Maternal Grandmother Mother Paternal Grandmother Social History Tobacco Use Types Packs/Day Years Used Date Smoking Tobacco: Never Smokeless Tobacco: Never Tobacco Cessation:Counseling Given: Not Answered Alcohol Use Standard Drinks/Week Comments Not Currently 0 (1 standard drink = 0.6 oz pur e alcohol) AUDIT-C Answer Date Recorded Q1: How often do you have a drink containing alcohol? Never 06/20/2024 Q2: How many drinks containi ng alcohol do you have on a typical day when you are drinking? Patient does not drink Q3: How often do you have si x or more drinks on one occasion? Never 06/20/2024 Overall Financial Resource Strain (CARDIA) Answe r Date Recorded How hard is it for you to pa y for the very basics like food, housing, medical care, and heating? Not hard at all 08/09/2024 [facility] - Occupational Stress Questionnaire Answer Date Recorded Do you feel stress - tense, restless, nervous, or anxious, or unable to sleep at night because your mind is troubled all the time - these days? Only a little 08/09/2024 Hunger Vital Sign Answer Date Recorded Within the past 12 months, y ou worried that your food would run out before you got the money to buy more. Never true 08/09/19 25 Within the past 12 months, t he food you bought just didn't last and you didn't have money to get more. Never true 08/09/2024 PRAPARE - Transportation Answer Date Re corded In the past 12 months, has l ack of transportation kept you from medical appointments or from getting medications? No 09/2024 In the past 12 months, has l ack of transportation kept you from meetings, work, or from getting things needed for daily living? No 08/09/2024 [place] Depression Scale Answer Date Recorded [place] Depression Scale Total 3 06/21/2024 The thought of harming myself has occurred to me . Never 06/21/2024 Housing Stability Vital Sign Answer Ayo e Recorded In the last 12 months, was t here a time when you were not able to pay the mortgage or rent on time? No 08/09/2024 In the past 12 months, how m any times have you moved where you were living? 1 08/09/2024 At any time in the past [facility], were you homeless or living in a skilled nursing (including now)? No 08/09/2024 Estimated Date of Delivery Comme nts Yes 11/04/2024 Based on last me nstrual period of 01/29/2024 Sex and Gender Information Value Date Recorded Sex Assigned at Female 06/20/2024 9:07 AM COFFEE BREAK ATTENDANT Legal Sex Female 6:54 AM COFFEE BREAK ATTENDANT Gender Identity Female 06/20/2024 9:07 AM COFFEE BREAK ATTENDANT Sexual Orientation Straight 06/20/2024 9: 07 AM COFFEE BREAK ATTENDANT Last Filed Vital Signs Vital Sign Reading Time Taken Comments Blood Pressure 124/59 09/14/2024 8:31 AM CDT Pulse 92 09/14/2024 8:31 AM CDT Temperature 36.9 C (98.4 F) 05/30/2010 10:57 AM COFFEE BREAK ATTENDANT Respiratory Rate 18 09/14/2024 8:31 AM CDT Oxygen Saturation - - Inhaled Oxygen Concentration - - Weight 109.8 kg (242 lb) 09/14/2024 8:31 AM CDT Height 165.1 cm (5' 5 ) 07/19/2024 8:24 AM COFFEE BREAK ATTENDANT Body Mass Index 40.27 07/19/2024 8:24 AM COFFEE BREAK ATTENDANT Plan of Treatment Health Maintenance Due Date Last Done Comments PAP SMEAR 1994 HIV SCREENING 2009 PNEUMOCOCCAL VACCINE (1 of 2 - PCV) 2013 COVID-19 VACCINE (3 - season) 2024 03/08/2021, 02/15/2021 DEPRESSION SCREENING 07/07/2024 06/21/2024 OB-RHOGAM INJECTION 08/12/2024 OB-GROUP B STREP SCREEN 09/30/2024 INFLUENZA VACCINE (Season Ended) 2025 07/18/2022, 05/28/2013, 07/19/2012 DTAP/TDAP/TD VACCINES (7 - Td or Tdap) 08/09/2034 08/09/2024, 02/14/2009, 01/25/2000, Additional history exists ZOSTER VACCINE (1 of 2) 2044 HEPATITIS B VACCINE Completed 06/12/1995, 1994, 1994 HIB VACCINE Completed 01/19/1996, 02/05, 01/02/1995, Additional history exists MENINGOCOCCAL GROUPS A/C/Y/W VACCINE Aged Out 02/14/2009 No longer eligible based on patient's age to complete this topic HEPATITIS C SCREENING Completed 03/24/2024 OB-TDAP CURRENT Completed 08/09/2024 OB-ONE HOUR GLUCOSE Completed 08/11/2024, HPV VACCINE Aged Out No longer eligi ble based on patient's age to complete this topic MENINGOCOCCAL (Group B) VACCINE SHARED DECISION-MAKING Aged Out No longer eligible based on patient's age to complete this topic Respiratory Syncytial Virus (RSV) Vaccine Pt: or over 60 yrs (No Doses Required) Completed Procedures Procedure Name Priority Date/Time Associated Diagnosis Comments BIOPHYSICAL PROFILE W NST Routine 09/14/2024 7:54 AM CDT Obesity (BMI 35.0-39.9 without comorbidity) Anxiety and depression Hypothyroidism affecting in second trimester Poor growth affecting management of mother in second trimester, single or unspecified fetus Glucose intolerance of 32 weeks gestation of SONOGRAM - COMPLETE Routine 09/06/2024 7 :49 AM COFFEE BREAK ATTENDANT Glucose intolerance of Encounter for ultrasound to assess growth Hypothyroidism affecting in second trimester Poor growth affecting management of mother in second trimester, single or unspecified fetus Obesity (BMI 35.0-39.9 without comorbidity) Abnormal O'Walker glucose challenge test, antepartum PCOS (polycystic ovarian syndrome) Screening, , for anatomic survey 31 weeks gestation of GTT 3 HR (100G) GESTATIONAL DIAGNOSTIC 08/11/2024 7:30 AM COFFEE BREAK ATTENDANT SONOGRAM - COMPLETE Routine 08/09/2024 7 :27 AM COFFEE BREAK ATTENDANT from Last 3 Months Results * BIOPHYSICAL PROFILE W NST (09/14/2024 7:54 AM CDT) Linked Results Indication ======== SGA Class II obesity Depression/anxie ty PCOS History ====== General History Blood group: A, Rh positive OB History 2. Para 1 Lab Tests Test Date Result NIPT 05/03/2024 Low risk, Female Maternal Assessment Physical Exam Height 165 cm, 5 ft 5 in. Weight 110 kg, 242 lb. Initial weight 104 kg, 230 lb. BMI 40.27 kg/m . Initial BMI 38.27 kg/m . Weight gain 5 kg, 12 lb Method ====== Transabdominal ultrasound examination. View: Sufficient ========= Junior . Number of fetuses: 1 Dating ====== Date Details Gest. age VANCE LMP 01/29/2024 Cycle: irregular cycle 32 w + 5 d 11/04/2024 Stated VANCE 32 w + 5 d 11/04/2024 Previous U/S 03/09/2024 GA, GA 5 w + 6 d 32 w + 6 d 11/03/2024 Assigned dating based on the LMP, selected on 06/21/2024 32 w + 5 d 11/04/2024 General Evaluation Cardiac activity present. FHR 147 bpm. movements: visualized, present. Presentation: cephalic Placenta: Placental site: left lateral Amniotic Fluid Assessment ==== Amount of AF: normal MVP 4.5 cm. ULI 13.8 cm. Q1 1.9 cm, Q2 4.5 cm, Q3 4.5 cm, Q4 3.0 cm Biophysical Profile 2: breathing movements 2: Gross body movements 2: tone 2: Amniotic fluid volume NST: reactive /10 Biophysical profile score Non Stress Test NST interpretation: reactive. Test duration 30 min. Baseline FHR 150 bpm. Baseline variability: marked. Accelerations: present. Decelerations: absent. Uterine activity: absent. CTG category: normal/reassurin g Growth Overview = Exam date GA BPD (mm) HC (mm) AC (mm) FL (mm) HL (mm) EFW (g) 06/21/2024 20w 4d 43.5 6% 169.3 7% 144.3 19% 31 13% 28.6 10% 305 9% 07/19/2024 24w 4d 54.9 2% 216.4 8% 185 10% 39.6 3% 37.3 6% 563 4% 08/09/2024 27w 4d 64.9 6% 250.9 14% 226.9 27% 47.9 5% 44 10% 979 14% 09/06/2024 31w 4d 77.3 24% 293.7 35% 251.6 4% 55.6 2% 49.5 3% 1447 5% Anatomy The following structures appear normal: Abdomen Stomach. Kidneys. Bladder. sex: female. Doppler Umbilical Artery: normal PI 0.95 62% Roverto S / D 2.75 57% Roverto Mid Cerebral Artery: normal PI 1.87 22% Ebbing PS 47.55 cm/s PS 1.04 MoM CPR PI 1.97 18% Ebbing Impression ========= Single, live, intrauterine at 32w 5d Amniotic fluid volume: normal Biophysical profile: 04/15 Umbilical Artery Dopplers: normal MCA Dopplers: normal Comment ======== Reassuring exam today Follow-up ======== weekly NST, biophysical profile, and Doppler assessment and reassess growth ultrasound in 2 weeks Coding ====== Procedures 19682: US Uterus Limited 37790: Biophysical Profile W NST 53949: Umbilical Doppler 84852: MCA Doppler [employer] PACS Anatomical Region Laterality Modality Other 09/14/2024 7:54 AM CDT Maynor Roman MD [facility] ORDERABLES Edited Result - Final * SONOGRAM - COMPLETE (09/06/2024 7:49 AM COFFEE BREAK ATTENDANT) Only the most recent of2 resultswithin the time period is included. Linked Results Indication ======== Class II obesity Depression/anxie ty PCOS History ====== General History Blood group: A, Rh positive OB History 2. Para 1 Lab Tests Test Date Result NIPT 05/03/2024 Low risk, Female Maternal Assessment Physical Exam Height 165 cm, 5 ft 5 in. Weight 110 kg, 243 lb. Initial weight 104 kg, 230 lb. BMI 40.44 kg/m . Initial BMI 38.27 kg/m . Weight gain 6 kg, 13 lb Method ====== Transabdominal ultrasound examination. View: Sufficient ========= Junior . Number of fetuses: 1 Dating ====== Date Details Gest. age VANCE LMP 01/29/2024 Cycle: irregular cycle 31 w + 4 d 11/04/2024 Stated VANCE 31 w + 4 d 11/04/2024 Previous U/S 03/09/2024 GA, GA 5 w + 6 d 31 w + 5 d 11/03/2024 Assigned dating based on the LMP, selected on 06/21/2024 31 w + 4 d 11/04/2024 General Evaluation Cardiac activity present. FHR 164 bpm. Presentation: transverse Placenta: Placental site: fundal Amniotic Fluid Assessment ==== Amount of AF: normal MVP 3.9 cm. ULI 12.5 cm. Q1 2.8 cm, Q2 3.5 cm, Q3 2.3 cm, Q4 3.9 cm Biophysical Profile 2: breathing movements 2: Gross body movements 2: tone 2: Amniotic fluid volume 02/11 Biophysical profile score Biometry BPD 77.3 mm 31w 0d 24% Hadlock HC 293.7 mm 32w 3d 35% Hadlock AC 251.6 mm 29w 3d 4% Hadlock Femur 55.6 mm 29w 2d 2% Hadlock Humerus 49.5 mm 29w 0d 3% Blade HC / AC 1.17 Weight Calculation: EFW 1,447 g 5% Hadlock EFW (lb,oz) 3 lb 3 oz EFW by Hadlock ([id number]) SGA Growth Overview = Exam date GA BPD (mm) HC (mm) AC (mm) FL (mm) HL (mm) EFW (g) 06/21/2024 20w 4d 43.5 6% 169.3 7% 144.3 19% 31 13% 28.6 10% 305 9% 07/19/2024 24w 4d 54.9 2% 216.4 8% 185 10% 39.6 3% 37.3 6% 563 4% 08/09/2024 27w 4d 64.9 6% 250.9 14% 226.9 27% 47.9 5% 44 10% 979 14% 09/06/2024 31w 4d 77.3 24% 293.7 35% 251.6 4% 55.6 2% 49.5 3% 1447 5% Anatomy The following structures appear normal: Abdomen Stomach. Kidneys. Bladder. sex: female. Doppler Umbilical Artery: normal PI 1.20 91% Roverto S / D 3.69 91% Roverto Impression ========= Single, live intrauterine at 31w 4d Amniotic fluid volume: normal size is SGA for the gestational age Biophysical profile: 02/11 Umbilical Artery Doppler: 91%ile- elevated Comment ======== Growth less than expected, elevated UA Doppler flow impedance . Not feeling any contractions today Follow-up ======== Follow up ultrasound in 3 weeks- repeat growth Beginning twice weekly NST, weekly biophysical profile and Doppler assessment is recommended If testing available at OB office, can coordinate visits movement precautions Coding ====== Procedures 66345: [place] [address]: Umbilical Doppler 37262: Biophysical Profile W/O NST Cardiovascular Decisions PACS Anatomical Region Laterality Modality Other 09/06/2024 7:49 AM COFFEE BREAK ATTENDANT Maynor Roman MD [facility] ORDERABLES Edited Result - Final * (ABNORMAL) GTT 3 HR (100G) GESTATIONAL DIAGNOSTIC (08/11/2024 7:30 AM COFFEE BREAK ATTENDANT) Glucose Fasting GTT 82 65 - 94 mg/dL [facility] GTT 1Hr 176 <180 mg/dL [facility] Glucose 2Hr 128 <155 mg/dL [facility] GTT 3 Hr 42(L) <140 mg/dL [facility] See Below [facility] Comment: Norton/Coustan Criteria: Two or more values greater than the above reference intervals are suggestive of gestational diabetes. REPORT COMMENT: FASTING:YES Test [facility] [id number] [place] [address] YADIRA JUAREZ MD 08/11/2024 7:30 AM COFFEE BREAK ATTENDANT 08/11/2024 7:30 AM COFFEE BREAK ATTENDANT us Loretta Roach MD LAB - CHEMISTRY ORDERABLES Final Result [place] [address] [place] [address] from Last 3 Months Insurance Care Teams Case Making Machine Operator Relationship Specialty Start Date End Date Jennifer Knutson MD PCP - Pediatrics 08/15/09
--- OUTSIDE RECORDS SUMMARY | 2024-11-04 16:16 | XMS_ITS | Clinical Summary ---
Author Organization [facility] [employer] Address [address] [address] Care Team Providers Care Credit Underwriter Name Role Phone Hernan Bond MD Primary Care Provide r Active Problems No known active problems Encounters Date Type Department Care Team Description 10/05/2024 External Device Data [facility] ABSTRACTION Provider, Abstract 09/11/2024 External Device Data [facility] ABSTRACTION Provider, Abstract 09/10/2024 External Device Data [facility] ABSTRACTION Provider, Abstract 09/08/2024 External Device Data [facility] ABSTRACTION Provider, Abstract 09/03/2024 Results Follow-Up [facility] (Former[facility]3] at [facility] [employer] [address] [place] [id number] Candace Foster MD TSH, LIPID PANEL, COMPREHENSIVE METABOLIC PANEL, CBC WITH DIFFERENTIAL 08/31/2024 9:20 AM VOCATIONAL EDUCATION TEACHER Office Visit [facility]3] at [facility] [employer] [address] [place] [address] Screening for condition 08/24/2024 External Device Data [facility] ABSTRACTION Provider, Abstract from Last 3 Months Social History Tobacco Use Types Packs/Day Years Used Date Smoking Tobacco: Never Assessed Comments Unknown Sex and Gender Information Value Date Recorded Sex Assigned at Not on file Legal Sex Female 1:53 PM CDT Gender Identity Not on file Sexual Orientation Not on file Last Filed Vital Signs Vital Sign Reading Time Taken Comments Blood Pressure 110/58 08/31/2024 9:24 AM VOCATIONAL EDUCATION TEACHER Pulse - - Temperature - - Respiratory Rate - - Oxygen Saturation - - Inhaled Oxygen Concentration - - Weight 111.1 kg (245 lb) 08/31/2024 9:24 AM VOCATIONAL EDUCATION TEACHER Height 165.1 cm (5' 5 ) 08/31/2024 9:24 AM VOCATIONAL EDUCATION TEACHER Body Mass Index 40.77 08/31/2024 9:24 AM VOCATIONAL EDUCATION TEACHER Plan of Treatment Health Maintenance Due Date Last Done Comments HPV/Cotest (21-29) 2015 INFLUENZA VACCINE (#1) 2024 COVID-19 Vaccine (2 - 2023- season) 2024 02/15/2021 CERVICAL CANCER SCREENING 2024 HPV/Cotest (30-65) 2024 PAP SMEAR 2024 DTAP/TDAP/TD VACCINES (7 - Td or Tdap) 08/09/2034 08/09/2024, 01/25/2000, 01/19/1996, Additional history exists HEPATITIS B VACCINES Completed 06/12/1995, 1994, 1994 HPV VACCINES Aged Out No longer eligi ble based on patient's age to complete this topic Procedures Procedure Name Priority Date/Time Associated Diagnosis Comments CBC WITH DIFFERENTIAL Routine 08/31/2024 9:11 AM VOCATIONAL EDUCATION TEACHER Screening for condition COMPREHENSIVE METABOLIC PANEL Routine 08/31/2024 9:11 AM VOCATIONAL EDUCATION TEACHER Screening for condition LIPID PANEL Routine 08/31/2024 9:11 AM VOCATIONAL EDUCATION TEACHER Screening for condition TSH Routine 08/31/2024 9:11 AM VOCATIONAL EDUCATION TEACHER Screening for condition from Last 3 Months Results * (ABNORMAL) CBC WITH DIFFERENTIAL (08/31/2024 9:11 AM VOCATIONAL EDUCATION TEACHER) WBC 12.0(H) 3.8 - 10.8 Thousand/ uL [facility] RBC 3.74(L) 3.80 - 5.10 Million/u L [facility] HEMOGLOBIN 11.6(L) 11.7 - 15.5 g/dL [facility] HEMATOCRIT 35.6 35.0 - 45.0 % [facility] MCV 95.2 80.0 - 100.0 fL [facility] MCH 31.0 27.0 - 33.0 pg [facility] MCHC 32.6 32.0 - 36.0 g/dL [facility] Comment: For adults, a slight decrease in the calculated MCHC value (in the range of 30 to 32 g/dL) is most likely not clinically significant; however, it should be interpreted with caution in correlation with other red cell parameters and the patient's clinical condition. RDW 12.8 11.0 - 15.0 % [facility] PLATELETS 266 140 - 400 Thousand/ uL [facility] MPV 10.7 7.5 - 12.5 fL [facility] NEUTROPHIL ABSOLUTE 8,940(H) 1,500 - 7,800 cells/uL [facility] LYMPHOCYTE ABSOLUTE 2,208 850 - 3,900 cells/uL [facility] MONOCYTE ABSOLUTE 624 200 - 950 cells/uL [facility] EOSINOPHIL ABSOLUTE 204 15 - 500 cells/uL [facility] BASOPHILS ABSOLUTE 24 0 - 200 cells/uL [facility] NEUTROPHIL 74.5 % [facility] LYMPHOCYTES 18.4 % [facility] MONOCYTE 5.2 % [facility] EOSINOPHILS 1.7 % [facility] BASOPHILS 0.2 % [facility] Comment: Test Performed at: [place] [address] [address] [id number] [facility] Blood 08/31/2024 9:11 AM VOCATIONAL EDUCATION TEACHER 09/01/2024 12:23 AM VOCATIONAL EDUCATION TEACHER Carmen Ramos MD HEMATOLOGY ORDERABLES Final Re sult [facility] [phone] [place] [address] [address] [phone] * TSH (08/31/2024 9:11 AM VOCATIONAL EDUCATION TEACHER) TSH 3.56 mIU/L [facility] Comment: Reference Range > or = 20 Years 0.40-4.50 Ranges First trimester 0.26-2.66 Second trimester 0.55-2.73 Third trimester 0.43-2.91 Test Performed at: [place] [address] [address] [phone] [facility] Blood 08/31/2024 9:11 AM VOCATIONAL EDUCATION TEACHER 09/01/2024 12:23 AM VOCATIONAL EDUCATION TEACHER Carmen Ramos MD CHEMISTRY ORDERABLES Final Res ult Performing Organization Address City/[facility] Code Phone Number [facility] [phone] [place] [address] [place] [phone] * LIPID PANEL (08/31/2024 9:11 AM VOCATIONAL EDUCATION TEACHER) CHOLESTEROL 167 <200 mg/dL [facility] HDL 76 > OR = 50 mg/dL [facility] TRIGLYCERIDE 124 <150 mg/dL [facility] LDL CALCULATED 70 mg/dL (calc) [facility] Comment: Reference range: <100 Desirable range <100 mg/dL for primary prevention; <70 mg/dL for patients with CHD or diabetic patients with > or = 2 CHD risk factors. LDL-C is now calculated using the Lucas calculation, which is a validated novel method providing better accuracy than the Friedewald equation in the estimation of LDL-C. Lenin BOYLE et al. COREY. 2013;310(19): 4226-6944 (http://education.GO-SIM.Hyginex/faq/UKH568) CHOL/HDL RATIO 2.2 <5.0 (calc) [facility] NON-HDL CHOLESTEROL 91 <130 mg/dL (calc) [facility] Comment: For patients with diabetes plus 1 major ASCVD risk factor, treating to a non-HDL-C goal of <100 mg/dL (LDL-C of <70 mg/dL) is considered a therapeutic option. Test Performed at: [email or web address] [place] [address] [place] [address] [facility]al[facility] Blood 08/31/2024 9:11 AM VOCATIONAL EDUCATION TEACHER 09/01/2024 12:23 AM VOCATIONAL EDUCATION TEACHER us Carmen Ramos MD CHEMISTRY ORDERABLES Final Res ult Performing Organization Address City/[facility]/ZIP Code Phone Number [facility] [phone] [place] [address] [place] [phone] * (ABNORMAL) COMPREHENSIVE METABOLIC PANEL (08/31/2024 9:11 AM VOCATIONAL EDUCATION TEACHER) GLUCOSE 95 65 - 99 mg/dL [facility] Comment: Fasting reference interval BUN 9 7 - 25 mg/dL [facility] CREATININE 0.59 0.50 - 0.97 mg/dL [facility] GFR 124 > OR = 60 mL/min/1. 73m2 [facility] BUN/CREAT RATIO SEE NOTE: 6 - 22 (calc) [facility] Comment: Not Reported: BUN and Creatinine are within reference range. SODIUM 136 135 - 146 mmol/L [facility] POTASSIUM 4.6 3.5 - 5.3 mmol/L [facility] CHLORIDE 103 98 - 110 mmol/L [facility] CO2 24 20 - 32 mmol/L [facility] CALCIUM 8.4(L) 8.6 - 10.2 mg/dL [facility] TOTAL PROTEIN 5.8(L) 6.1 - 8.1 g/dL [facility] ALBUMIN 3.3(L) 3.6 - 5.1 g/dL [facility] GLOBULIN 2.5 1.9 - 3.7 g/dL (calc) [facility] ALBUMIN/GLOBULIN RATIO 1.3 1.0 - 2.5 (calc) [facility] BILIRUBIN TOTAL 0.2 0.2 - 1.2 mg/dL [facility] ALKALINE PHOSPHATASE 73 31 - 125 U/L [facility] AST 11 10 - 30 U/L [facility] ALT 10 6 - 29 U/L [facility] Comment: Test Performed at: [facility] [address] [place] [phone] Rosalinda Carpenter Blood 08/31/2024 9:11 AM VOCATIONAL EDUCATION TEACHER 09/01/2024 12:23 AM VOCATIONAL EDUCATION TEACHER us Carmen Ramos MD CHEMISTRY ORDERABLES Final Res ult [facility] [phone] [facility] [address] [place] [phone] from Last 3 Months Insurance [employer]LE[employer]ANCE OPEN ACCESS Care Teams Credit Underwriter Relationship Specialty [place] [address] [place] [address] PCP - General Family Practice 11/25/23
--- OUTSIDE RECORDS SUMMARY | 2024-11-04 16:16 | XMS_ITS | Encounter Summary ---
Author Organization [facility] Address [address] [place] [address] Care Team Providers Care Automotive Service Technician Name Role Phone Hernan Bond MD Primary Care Provide Encounter Details Date Type Department Care Team (Latest Contact Info) Description 09/03/2024 Results Follow-Up [facility] at [employer] [facility] [address] [place] [address] Candace Foster MD [address] [place] [address] TSH, LIPID PANEL, COMPREHENSIVE METABOLIC PANEL, CBC WITH DIFFERENTIAL Social History Tobacco Use Types Packs/Day Years Used Date Smoking Tobacco: Never Assessed Comments Unknown Sex and Gender Information Value Date Recorded Sex Assigned at Not on file Legal Sex Female 1:53 PM CDT Gender Identity Not on file Sexual Orientation Not on file documented as of this encounter Miscellaneous Notes * Result Encounter Note - Candace Foster MD - 09/03/2024 5:49 PM TYPE PROOF REPRODUCER Please call patient to inform her of results and advise she call her pcp to discuss or schedule an appt with our office to discuss. TSH is normal. Metabolic panel is normal, except calcium, protein, and albumin are all marked low. Lipid panel is normal. Blood counts show WBC and neutrophils elevated, RBC and hemoglobin low. PROOF REPRODUCER documented in this encounter Plan of Treatment Not on file documented as of this encounter Visit Diagnoses Not on filedocumented in this encounter Care Teams Automotive Service Technician Relationship Specialty [place] [address] [place] [address] PCP - General Family Practice 11/25/23 documented as of this encounter
[2024-11-04 16:40] LABS: Basophils Percent Auto 0.2 % (0.2-1.2); Eosinophils Absolute Auto 0.1 K/mm3 (0-0.3); Eosinophils Percent Auto 1.3 % (0-4.4); Hematocrit 35.9 % (37.0-47.0); Hemoglobin 11.6 g/dL (12.0-15.0); Immature Granulocyte Absolute 0.06 K/mm3 (0.00-0.031); Immature Granulocyte Percent A 0.6 % (0-0.5); Lymphocytes Absolute Auto 2.57 K/mm3 (0.9-3.2); Lymphocytes Percent Auto 23.7 % (18.3-44.2); Mean Corpuscular HGB Conc 32.3 g/dl (32-36); Mean Corpuscular Hemoglobin 29.8 pg (26-34); Mean Corpuscular Volume 92.3 fl (80-100); Mean Platelet Volume 10.8 fl (7.4-10.4); Monocytes Absolute Auto 0.9 K/mm3 (0.1-0.6); Monocytes Percent Auto 8.3 % (2.6-8.5); Neutrophils Absolute Auto 7.2 K/mm3 (1.3-6.7); Neutrophils Percent Auto 65.9 % (45.5-73.1); Platelet Count Result 248 k/mm3 (150-375); Red Blood Count 3.89 M/mm3 (4.2-5.4); White Blood Count 10.9 K/mm3 (4.5-10.0)
--- NOTE | 2024-11-04 16:44 | LDADM ---
This patient, Gaviota Doshi, was admitted to Labor/Delivery/Recovery 105 on 11/04/24 at 15:57. Plans for labor, pain management and were discussed with patient. Patient/family oriented to hospital policies and general routines including ID bracelet, bed and alarms, visiting hours, pain management, procedures, bathroom and other care routines, personal items, smoking policy, room service/diet and guest tray routines, security routines, and visiting hours. Patient/Family are encouraged to report perceived risks to care and to ask questions if they do not understand what they are told or what they should do. See OBIX for further documentation.
[2024-11-04] MEDS: DINOPROSTONE 10 MG VAG INSERT VAGINAL (16:55)
[2024-11-04 17:45] LABS: Syphilis IgG/IgM Antibody Negative (Negative)
[2024-11-04 17:59] LABS: HIV 1/2 Ab P24 Ag Result Negative (Negative)
[2024-11-04] MEDS: fentaNYL CITRATE INJ (*CRX) 100 MCG/2 ML VIAL 50 MCG IV PUSH (19:48)
--- NOTE | 2024-11-04 20:14 | P.PNAN_ITS ---
Anes - Initial Pre Proc Eval Procedure: labor epidural Date/Time: 11/04/24 20:14 Surgeon: Maynor Roman MD Pre Op Diagnosis: labor pain Pre Op Diagnosis: IOL Patient Data Age: 29 Gender: F Height: 1.66 m Weight: 110 kg Last Vital Signs Temp 37.1 C 11/04/24 18:15 Pulse 104 H 11/04/24 19:59 BP 117/72 11/04/24 19:59 Pulse Ox 97 11/04/24 20:10 O2 Del Method Room Air 11/04/24 16:43 Allergies Allergy/AdvReac Type Severity Reaction Status Date / Time banana AdvReac Intermediate Gastrointestinal Verified 10/13/24 07:44 Upset Home Medications ?Medication ?Instructions ?Recorded ?Confirmed ?Type bupropion HCl 150 mg 24 hr tablet, 150 mg PO DAILY 02/04/22 11/04/24 History extended release vit#24-iron amino acid 1 tablet PO DAILY 03/15/23 11/04/24 History chelat-folic acid 30 mg-975 mcg tablet aspirin 81 mg capsule 81 mg PO DAILY 09/29/24 11/04/24 History cholecalciferol (vitamin D3) 25 1,000 unit PO DAILY 09/29/24 11/04/24 History mcg (1,000 unit) capsule (Vitamin D3) levothyroxine 25 mcg tablet 25 mcg PO DAILY 11/04/24 11/04/24 History Laboratory Tests 11/04/24 16:29 WBC 10.9 H K/mm3 (4.5-10.0) RBC 3.89 L M/mm3 (4.2-5.4) Hgb 11.6 L g/dL (12.0-15.0) Hct 35.9 L % (37.0-47.0) MCV 92.3 fl (80-100) MCH 29.8 pg (26-34) MCHC 32.3 g/dl (32-36) RDW 13.0 % (11.5-14.5) Plt Count 248 k/mm3 (150-375) MPV 10.8 H fl (7.4-10.4) Immature Gran % (Auto) 0.6 H % (0-0.5) Neut % (Auto) 65.9 % (45.5-73.1) Lymph % (Auto) 23.7 % (18.3-44.2) [place] % (Auto) 8.3 % (2.6-8.5) Eos % (Auto) 1.3 % (0-4.4) Baso % (Auto) 0.2 % (0.2-1.2) Lymph # (Auto) 2.57 K/mm3 (0.9-3.2) [place] # (Auto) 0.9 H K/mm3 (0.1-0.6) Eos # (Auto) 0.1 K/mm3 (0-0.3) Baso # (Auto) 0.0 K/mm3 (0.0-0.1) Abs Immat Gran (auto) 0.06 H K/mm3 (0.00-0.031) Absolute Neuts (auto) 7.2 H K/mm3 (1.3-6.7) Absolute Nucleated RBC 0.000 K/mm3 (0.0-0.012) Nucleated RBC % 0.0 % (0.0-0.2) Syphilis IgG/IgM Ab Negative (Negative) HIV 1&2 Ab/P24 Ag 4thGn Negative (Negative) Blood Type A Positive Antibody Screen Negative Patient hx anesthesia problems: none Family hx anesthesia problems: none Results Review: All pre-operative results and documents have been reviewed as part of the pre- operative evaluation. [facility] Surgical History Surgical History History of orthopedic surgery Right knee Social History Social History Smoking status: Never smoker Substance use: never Do You Feel Safe in your Home?: Yes Lack of Transportation: No Lack of Food: Never True Current Housing: I Have Housing Concerned About Future Housing: No Difficulty Paying Gas/Electric Bills: No Difficulty Paying for Meds: No Currently Unemployed: No Education: Associate Degree Difficulty w/ Childcare or Family Care: No Spiritual care concerns: No Anes - Eval Final PreProcedure Day of Procedure 11/04/24 20:14 Heart: regular rate and rhythm Lungs: clear to auscultation and normal air movement Airway: Mallampati scale class II Neurological: alert and oriented Results Review: All pre-operative results and documents have been reviewed as part of the pre- operative evaluation. Informed Consent: The patient's anesthetic plan and its attendant risks and benefits were discussed with the patient/family/POA. Questions were solicited and answers provided to the satisfaction of the patient/family/POA.
[2024-11-04] MEDS: LACTATED RINGERS 500 ML 999 ML IV CONT (20:18)
[2024-11-04] MEDS: LACTATED RINGERS 1,000 ML 125 ML IV CONT ×2 (21:21→23:28)
--- NOTE | 2024-11-04 23:27 | P.HP_ITS ---
H&P: [facility] History of Present Illness Date/Time: 11/04/24 23:27 Chief Complaint: Here for induction of labor. Narrative: 29 y/o at 40 weeks here for induction of labor. She has a history of PCOS and of GDM in a prior . She was initially thought to have Type 2 DM prior to , but [facility] sr technical sales consultant has clarified that she does not have Type 2 DM. Moreover, she had a normal 3 hour glucose tolerance test in the third trimester. She has well-controlled hypothyroidism. She takes Wellbutrin for depression and anxiety. She has been on ASA 81 mg. Finally, she had EFW that was SGA in the mid-trimester, but recent ultrasound exams have shown normal EFW. testing has been normal. She is here for induction of labor. Cervidil was placed this evening, but withdrawn after a few hours due to uterine tachysystole. She is now comfortable with epidural. I was called to come evaluate because she was having recurrent variable decelerations. GBS neg. Review of Systems Review of Systems: All systems reviewed & are unremarkable except as noted in HPI and below PMFSH Past Medical History Medical History History of gestational diabetes mellitus (GDM) in prior , currently History of hypothyroidism History of anxiety History of depression Surgical History Surgical History History of orthopedic surgery Right knee Social History Social History Smoking status: Never smoker Substance use: never Do You Feel Safe in your Home?: Yes Lack of Transportation: No Lack of Food: Never True Current Housing: I Have Housing Concerned About Future Housing: No Difficulty Paying Gas/Electric Bills: No Difficulty Paying for Meds: No Currently Unemployed: No Education: Associate Degree Difficulty w/ Childcare or Family Care: No Spiritual care concerns: No Meds Home Medications and Allergies Home Medications ?Medication ?Instructions ?Recorded ?Confirmed ?Type bupropion HCl 150 mg 24 hr tablet, 150 mg PO DAILY 02/04/22 11/04/24 History extended release vit#24-iron amino acid 1 tablet PO DAILY 03/15/23 11/04/24 History chelat-folic acid 30 mg-975 mcg tablet aspirin 81 mg capsule 81 mg PO DAILY 09/29/24 11/04/24 History cholecalciferol (vitamin D3) 25 1,000 unit PO DAILY 09/29/24 11/04/24 History mcg (1,000 unit) capsule (Vitamin D3) levothyroxine 25 mcg tablet 25 mcg PO DAILY 11/04/24 11/04/24 History Allergies Allergy/AdvReac Type Severity Reaction Status Date / Time banana AdvReac Intermediate Gastrointestinal Verified 10/13/24 07:44 Upset Vital Signs Vital Signs - 24 hr 11/04/24 16:43 11/04/24 16:57 11/04/24 16:59 Temperature Pulse Rate 93 91 Blood Pressure 115/77 107/75 Pulse Oximetry Oxygen Delivery Room Air 11/04/24 17:00 11/04/24 17:29 11/04/24 17:54 Temperature 36.7 C Pulse Rate 90 Blood Pressure 113/71 Pulse Oximetry 97 Oxygen Delivery 11/04/24 17:59 11/04/24 18:04 11/04/24 18:09 Temperature Pulse Rate 102 H Blood Pressure 106/69 Pulse Oximetry 97 98 98 Oxygen Delivery 11/04/24 18:14 11/04/24 18:15 11/04/24 18:19 Temperature 37.1 C Pulse Rate Blood Pressure Pulse Oximetry 98 99 Oxygen Delivery 11/04/24 18:24 11/04/24 18:29 11/04/24 18:34 Temperature Pulse Rate 104 H Blood Pressure 102/62 Pulse Oximetry 100 98 100 Oxygen Delivery 11/04/24 18:34 11/04/24 18:39 11/04/24 18:44 Temperature Pulse Rate Blood Pressure Pulse Oximetry 99 99 99 Oxygen Delivery 11/04/24 18:49 11/04/24 18:54 11/04/24 18:59 Temperature Pulse Rate Blood Pressure Pulse Oximetry 100 100 100 Oxygen Delivery 11/04/24 19:00 11/04/24 19:27 11/04/24 19:32 Temperature Pulse Rate 95 Blood Pressure 102/50 L Pulse Oximetry 100 100 Oxygen Delivery 11/04/24 19:37 11/04/24 19:42 11/04/24 19:47 Temperature Pulse Rate Blood Pressure Pulse Oximetry 98 100 100 Oxygen Delivery 11/04/24 19:48 11/04/24 19:52 11/04/24 19:57 Temperature Pulse Rate 94 Blood Pressure 104/36 L Pulse Oximetry 100 98 Oxygen Delivery 11/04/24 19:59 11/04/24 20:02 11/04/24 20:07 Temperature Pulse Rate 104 H Blood Pressure 117/72 Pulse Oximetry 100 96 Oxygen Delivery 11/04/24 20:10 11/04/24 20:15 11/04/24 20:17 Temperature Pulse Rate 122 H 103 H Blood Pressure 64/22 L 105/67 Pulse Oximetry 97 97 Oxygen Delivery 11/04/24 20:19 11/04/24 20:24 11/04/24 20:29 Temperature Pulse Rate Blood Pressure Pulse Oximetry 95 99 97 Oxygen Delivery 11/04/24 20:30 11/04/24 20:37 11/04/24 20:38 Temperature Pulse Rate 86 111 H Blood Pressure 119/72 129/70 Pulse Oximetry 98 Oxygen Delivery 11/04/24 20:40 11/04/24 20:42 11/04/24 20:44 Temperature Pulse Rate 112 H 102 H Blood Pressure 127/62 135/70 Pulse Oximetry 98 97 Oxygen Delivery 11/04/24 20:45 11/04/24 20:46 11/04/24 20:46 Temperature Pulse Rate 105 H Blood Pressure 111/59 L Pulse Oximetry 97 95 Oxygen Delivery 11/04/24 20:47 11/04/24 20:51 11/04/24 20:53 Temperature Pulse Rate 88 95 Blood Pressure 118/60 153/136 H 124/56 L Pulse Oximetry 100 Oxygen Delivery 11/04/24 20:55 11/04/24 20:56 11/04/24 20:57 Temperature Pulse Rate 98 97 Blood Pressure 118/57 L 121/64 Pulse Oximetry 97 Oxygen Delivery 11/04/24 21:00 11/04/24 21:01 11/04/24 21:03 Temperature Pulse Rate 141 H 101 H Blood Pressure 132/100 H 118/55 L Pulse Oximetry 99 Oxygen Delivery 11/04/24 21:05 11/04/24 21:06 11/04/24 21:07 Temperature Pulse Rate 88 97 Blood Pressure 121/62 119/71 Pulse Oximetry 98 Oxygen Delivery 11/04/24 21:10 11/04/24 21:11 11/04/24 21:12 Temperature Pulse Rate 87 131 H Blood Pressure 117/63 120/85 Pulse Oximetry 97 Oxygen Delivery 11/04/24 21:15 11/04/24 21:16 11/04/24 21:20 Temperature Pulse Rate 86 94 Blood Pressure 115/58 L 121/59 L Pulse Oximetry 99 Oxygen Delivery 11/04/24 21:21 11/04/24 21:26 11/04/24 21:31 Temperature Pulse Rate Blood Pressure Pulse Oximetry 97 98 96 Oxygen Delivery 11/04/24 21:36 11/04/24 21:41 11/04/24 21:45 Temperature Pulse Rate 86 Blood Pressure 121/61 Pulse Oximetry 98 97 Oxygen Delivery 11/04/24 21:46 11/04/24 21:51 11/04/24 21:56 Temperature Pulse Rate Blood Pressure Pulse Oximetry 100 98 95 Oxygen Delivery 11/04/24 22:00 11/04/24 22:01 11/04/24 22:06 Temperature Pulse Rate 103 H Blood Pressure 120/83 Pulse Oximetry 97 97 Oxygen Delivery 11/04/24 22:11 11/04/24 22:15 11/04/24 22:16 Temperature Pulse Rate 89 Blood Pressure 132/92 H Pulse Oximetry 95 99 Oxygen Delivery 11/04/24 22:21 11/04/24 22:26 11/04/24 22:30 Temperature Pulse Rate 98 Blood Pressure 99/54 L Pulse Oximetry 98 97 Oxygen Delivery 11/04/24 22:31 11/04/24 22:35 11/04/24 22:36 Temperature Pulse Rate 100 Blood Pressure 104/56 L Pulse Oximetry 98 97 Oxygen Delivery 11/04/24 22:41 11/04/24 22:45 11/04/24 22:46 Temperature Pulse Rate 102 H Blood Pressure 94/55 L Pulse Oximetry 96 96 Oxygen Delivery 11/04/24 22:51 11/04/24 22:53 11/04/24 22:54 Temperature 37.1 C Pulse Rate 104 H 83 Blood Pressure 105/48 L 113/62 Pulse Oximetry 97 Oxygen Delivery 11/04/24 22:56 11/04/24 22:59 11/04/24 23:01 Temperature Pulse Rate 107 H Blood Pressure 110/63 Pulse Oximetry 97 96 Oxygen Delivery 11/04/24 23:04 11/04/24 23:06 11/04/24 23:07 Temperature Pulse Rate 112 H 114 H Blood Pressure 121/31 L 99/59 L Pulse Oximetry 97 Oxygen Delivery 11/04/24 23:10 11/04/24 23:11 11/04/24 23:15 Temperature Pulse Rate 104 H 112 H Blood Pressure 121/60 97/55 L Pulse Oximetry 97 Oxygen Delivery 11/04/24 23:16 11/04/24 23:20 11/04/24 23:21 Temperature Pulse Rate 110 H Blood Pressure 126/66 Pulse Oximetry 95 98 Oxygen Delivery 11/04/24 23:24 11/04/24 23:26 Temperature Pulse Rate 109 H Blood Pressure 125/73 Pulse Oximetry 98 Oxygen Delivery Exam Const: Orientation/consciousness: patient oriented x3 Other: Well-developed, well-nourished female in no acute distress. Neck: Thyroid: thyroid normal Lymphatic: no lymphadenopathy noted (in neck, axilla or inguinal nodes) Resp: Effort & Inspection: normal respiratory effort Auscultation: clear to auscultation bilaterally Cardio: Rate: regular rate Rhythm: regular rhythm Heart sounds: S1 normal heart sound present and S2 normal heart sound present GI: Other: ABD: Soft, nontender, nondistended, gravid. NST reactive, now with variable decelerations. TOCO: contractions every 2-3 min. : General: Yes no CVA tenderness Other: Cervix 8/90/-1. AROM with clear fluid. IUPC and FSE placed. Back/Spine/Pelvis: Back: no CVA tenderness Skin: General skin exam: normal color and no rashes or lesions noted Neuro: General: patient oriented x3 Extrem: Other: Extremities: nontender with no edema Psych: Mental Status: mental status grossly normal Affect: normal affect H&P: Results Labs Labs: Short CBC 11/04/24 Range/Units 16:29 WBC 10.9 H (4.5-10.0) K/mm3 Hgb 11.6 L (12.0-15.0) g/dL Hct 35.9 L (37.0-47.0) % Plt Count 248 (150-375) k/mm3 Assessment and Plan Assessment and plan (1) Term : Code(s): Z34.90 - Encounter for supervision of normal , unspecified, unspecified trimester Status: Acute Assessment and Plan: A: IUP at 40 weeks, here for induction of labor. P: S/p Cervidil briefly, now with labor not requiring augmentation. Comfortable with epidural. Reassuring status currently. Anticipate .
[2024-11-05] VITALS (37 sets, daily range): BP systolic 106–149; BP diastolic 53–119; PULSE 44–131; RESP 16–18; TEMP 36.5–37.3; O2SAT 86–100
--- NOTE | 2024-11-05 00:11 | PM.OBPRVD ---
OB - Vaginal Delivery Note Procedure Delivery date: 11/05/24 Induction method: Per Cervidil Protocol Delivery augmentation: Rupture of Membranes Delivery monitor: External FHT, External Uterine, Internal FHT and Internal Uterine Route of delivery: Episiotomy description: None Laceration Description: Periurethral Specimen: Yes (cord blood) Quantitative Blood Loss (ml): 120 Anesthesia type: Epidural Disposition: PACU Complications: None Narrative: 29 y/o at 40 weeks gestation who presented to the hospital for induction of labor. Cervidil was placed, then withdrawn after only a few hours for frequent contractions. Labor required no further augmentation. She received an epidural for pain control. The NST showed variable decelerations and the cervix was found to be 8 cm dilated. Amniotomy was performed with return of clear fluid. Her labor progressed rapidly and her cervix dilated completely. She pushed with good effort and delivered the 's head to the perineum, followed by the body. The nose and mouth were bulb suctioned. After a delay, the cord was clamped and cut. The infant was handed off the field. Cord blood was collected. The placenta delivered spontaneously and was grossly normal in appearance. The usual 3 vessel cord was noted. A shallow periurethral laceration was sustained. This was not bleeding and did not require repair. Needle and instrument counts were correct. The patient was taken to recovery room in stable condition. The went to the nursery in stable condition. I was present and scrubbed for the entire delivery. Baby Date of : 11/05/24 Time of : 00:00 Gestational Age by Date: 40 Infant gender: Female presentation: vertex position: Left Occiput Anterior Placenta delivery description: Spontaneous and Normal Configuration Cord Vessel Description: 3 Vessels and Delayed Cord Clamping
[2024-11-05] MEDS: ONDANSETRON INJ 4 MG/2 ML VIAL IV PUSH (00:13)
--- NOTE | 2024-11-05 00:15 | PM.OBDSVD ---
DS: Admitting Diagnosis Discharge Date 11/07/24 Admitting Diagnosis IUP at 40 weeks DS: Discharge Diagnosis Discharge Diagnosis (1) (normal spontaneous vaginal delivery): Code(s): O80 - Encounter for full-term uncomplicated delivery Status: Acute OB - DS: Summary OB Procedures : None OB Procedures Intrapartum: Spontaneous Vag Delivery OB Procedures: : None Peripartum Data Laceration Description: Periurethral Episiotomy description: None Time Spent with Patient Time attestation: Total time spent providing and/or coordinating discharge services: DS: Data Data Completed and Pending Labs on day of discharge: Labs from last 24 hours 11/04/24 16:29 WBC 10.9 H RBC 3.89 L Hgb 11.6 L Hct 35.9 L MCV 92.3 MCH 29.8 MCHC 32.3 RDW 13.0 Plt Count 248 MPV 10.8 H Immature Gran % (Auto) 0.6 H Neut % (Auto) 65.9 Lymph % (Auto) 23.7 [place] % (Auto) 8.3 Eos % (Auto) 1.3 Baso % (Auto) 0.2 Lymph # (Auto) 2.57 [place] # (Auto) 0.9 H Eos # (Auto) 0.1 Baso # (Auto) 0.0 Abs Immat Gran (auto) 0.06 H Absolute Neuts (auto) 7.2 H Absolute Nucleated RBC 0.000 Nucleated RBC % 0.0 Syphilis IgG/IgM Ab Negative HIV 1&2 Ab/P24 Ag 4thGn Negative Blood Type A Positive Antibody Screen Negative Discharge Plan Discharge Attending physician on discharge: Maynor Roman Discharging Clinician: Maynor Roman Patient Disposition: Home Activity: pelvic rest Diet: regular Discharge Instructions: Call or return if temperature above 100.4? F, increased abdominal pain, increased vaginal bleeding or any new problems. Education: Mom and Baby Guide Given to: Mother Follow-Up: Call your delivering provider's office for an appointment to be seen in: 6 Weeks Mom and baby should come to the [facility] for the follow-up appointment. Appointment Date/Time: November 09, 2024 at 11:00 am What to expect at your follow-up visit: Blood Pressure Check Physical Assessment Call [phone] if you are unable to keep your appointment time. BREAST CARE: * Wear a snug supportive bra. * For engorgement discomfort: Breast Feeding: * Apply warm moist washcloths * Express milk as needed to relieve engorgement * Wear loose clothing Bottle Feeding: * May apply ice packs * For sore nipples: * Identify correct latch-on * Apply warm moist washcloths before and after nursing * Air dry nipples after nursing * May apply Lansinoh cream to nipples EPISIOTOMY/PERINEAL CARE: * Until bleeding stops, use your saleem bottle after urinating * Change your pad frequently throughout the day * You may take sitz baths several times a day (fill your bathtub with warm water and soak for 20 minutes.) Do NOT bathe in the water * No tub baths until seen by your physician - You may shower ACTIVITY: * Rest as much as possible. * Do not exercise or lift anything heavier than your baby (such as laundry or other children.) * Avoid stairs or driving as much as possible. * Do not put anything into the vagina. No douching, tampons, or sexual activity until seen by physician. NOTIFY PHYSICIAN IF YOU HAVE ANY QUESTIONS OR IF ANY OF THE FOLLOWING SYMPTOMS OCCUR: * If your episiotomy or incision becomes red, swollen, or more painful than what you have experienced in the hospital. * If your vaginal bleeding becomes foul smelling. * If your vaginal bleeding becomes more heavy than a period or if your bleeding changes from pink to bright red. However, you may pass an occasional walnut-sized clot once or twice for the first week . * If you experience a sharp, shooting pain in you calves. * If you discover a hard, reddened area on your breast or if you experience flu-like symptoms. DIET: * Eat regular, well-balanced meals. * Drink plenty of fluids daily. If , drink to thirst. Patient Language: Senegalese Stand Alone Forms: General Discharge Information Follow-up/Referrals: Maynor Roman MD [Physician] - 6 Weeks Discharge Medications: New ibuprofen 600 mg tablet 600 mg PO Q6H PRN (Reason: cramps) Qty: 30 0RF Continued bupropion HCl 150 mg tablet extended release 24 hr 150 mg PO DAILY PNV no.[id number] acid 30-975 mg-mcg Tablet 1 tablet PO DAILY cholecalciferol (vitamin D3) [Vitamin D3] 25 mcg (1,000 unit) capsule 1,000 unit PO DAILY levothyroxine 25 mcg tablet 25 mcg PO DAILY Discontinued aspirin 81 mg capsule 81 mg PO DAILY Date of admission: 11/04/24 15:57 Primary Care Provider: Susi,Yessica Coles Admitting Provider: Maynor Roman Attending physician on admission: Maynor Roman Condition: Stable
[2024-11-05] MEDS: BENZOCAINE 20% AER SPR (*SP) 56 GM CAN 1 SPRAY TOPICAL (04:50)
[2024-11-05 05:16] LABS: Hematocrit 36.2 % (37.0-47.0); Hemoglobin 11.9 g/dL (12.0-15.0)
--- NOTE | 2024-11-05 07:10 | PC.NURSE ---
Report given to Isabel Guzman RN.
[2024-11-05] MEDS: LEVOTHYROXINE SODIUM 25 MCG TABLET PO (07:26)
--- NOTE | 2024-11-05 08:38 | PM.OBPNVD ---
OB - PN: Subj Subjective Date/time seen: 11/05/24 08:38 Narrative: Pain OK. Tolerating diet. . OB - PN: Obj Data Labs 11/05/24 04:57 Labs: Laboratory Results - last 24 hr 11/04/24 11/05/24 16:29 04:57 WBC 10.9 H RBC 3.89 L Hgb 11.6 L 11.9 L Hct 35.9 L 36.2 L MCV 92.3 MCH 29.8 MCHC 32.3 RDW 13.0 Plt Count 248 MPV 10.8 H Immature Gran % (Auto) 0.6 H Neut % (Auto) 65.9 Lymph % (Auto) 23.7 [place] % (Auto) 8.3 Eos % (Auto) 1.3 Baso % (Auto) 0.2 Lymph # (Auto) 2.57 [place] # (Auto) 0.9 H Eos # (Auto) 0.1 Baso # (Auto) 0.0 Abs Immat Gran (auto) 0.06 H Absolute Neuts (auto) 7.2 H Absolute Nucleated RBC 0.000 Nucleated RBC % 0.0 Syphilis IgG/IgM Ab Negative HIV 1&2 Ab/P24 Ag 4thGn Negative Blood Type A Positive Antibody Screen Negative OB - PN A/P Plan day: 0 Comments: A: POD#0, doing well. P: Routine care. Exam Narrative: AVSS I/O OK ABD soft, nontender, fundus firm. Incision c/d/i. EXT nontender
[2024-11-05] MEDS: DOCUSATE SODIUM 100 MG CAPSULE PO (09:08)
[2024-11-05] MEDS: MULTIVIT/MIN/PREN/FOL AC/IRON TABLET 1 TAB PO (09:08)
[2024-11-05] MEDS: buPROPion HCL XL (24 HR) 150 MG TABCR PO (09:08)
[2024-11-05] MEDS: IBUPROFEN 600 MG TABLET PO (12:00)
--- NOTE | 2024-11-05 16:30 | PC.NURSE ---
Met with patient regarding needs. She shares that baby was latching really well initially but now is quite sleepy and not wanting to latch as well. She exclusively pumped and bottle fed her son and she states that if doesn't work out she will just feed formula because she does not want to exclusively pump again. She is using a hand pump and supplementing baby with anything she gets. Baby is still less than 24 hours old so we reviewed expected behavior. Mom tried the nipple shield on the right nipple which she states is inverted but that baby did not like the shield. She continues to pump the right but doesn't latch baby to that side. We discussed different feeding positions and working on getting the deepest latch possible. Mom will call out at the next feeding for assistance or we will meet in the morning tomorrow. She is encouraged to call out in the night to get assistance from her nurse if needed. RN updated.
--- NOTE | 2024-11-05 20:33 | PC.NURSE ---
0730-Patient transferred to post room #280 via wheelchair. Support person present. Oriented to unit, room, information board, rooming in, admission packet and security measures. Patient verbalizes understanding.
[2024-11-06] MEDS: IBUPROFEN 600 MG TABLET PO ×2 (03:00→12:31)
[2024-11-06] MEDS: buPROPion HCL XL (24 HR) 150 MG TABCR PO (08:17)
[2024-11-06] MEDS: MULTIVIT/MIN/PREN/FOL AC/IRON TABLET 1 TAB PO (08:17)
[2024-11-06] MEDS: LEVOTHYROXINE SODIUM 25 MCG TABLET PO (08:18)
[2024-11-06 08:44] VITALS: BP 119/77; PULSE 99; RESP 16; TEMP 36.6; O2SAT 99
--- NOTE | 2024-11-06 08:52 | P.PNOB_ITS ---
OB - PN: Subj Subjective Date/time seen: 11/06/24 08:52 Narrative: Pain OK. OB - PN: Obj Data Labs 11/05/24 04:57 OB - PN A/P Plan day: 1 Comments: A: PPD#1, doing well. P: Routine care. Plan home tomorrow. Exam 2 Psych: Other: AVSS ABD soft, nontender, fundus firm EXT nontender
--- NOTE | 2024-11-06 10:45 | PC.NURSE ---
1045: Patient called out for feeding assistance. Baby was in the nursery for assessment from the interstate bus driver and is due to eat now. She is very sleepy and we spent 10-15 minutes trying to wake her and get her to latch. She did have formula at the last feeding about 3 hours ago. Mom feels much firmer today and states that makes it even more difficult for baby to latch. We reviewed pumping a bit before latching to soften the breast. Her right nipple is inverted but comes out with stimulation or pumping. Mom is going to use her hand pump now and we will attempt to breastfeed again in 30 minutes. RN updated. 1120: Baby more awake at this attempt at breast but wasn't able to latch and maintain her suction at the breast. She latches better on the left and we tried cross cradle and football holds. Mom was shown how to compress her breast to make a bite for baby with the direction of the breast parallel to baby's mouth. Baby opens wide and attempts to latch but continues to push the nipple out with each suckle. Mom feels that the cause is that her nipples are too big for baby's mouth. We discussed that baby needs to grow and strengthen her muscles but that it doesn't appear the nipple is too big for an appropriate latch. Baby has been using a pacifier and feeding from the bottle occasionally. Discussed that trying with the nipple shield again may allow for a firmer and longer nipple in baby's mouth that may help her maintain latch and suction. Mom states that baby does not like the shield. Reviewed ways to make the shield more appealing like using milk on the inside and outside of shield to entice baby or to dribble drops in baby's mouth to moisten the tongue. Mom feels that because baby is able to latch and suck well from the bottle nipple and pacifier that she should be able to take the natural nipple just as easily. Educated on the different feel, length and texture of a natural breast vs. an artificial nipple. Mom worries about nipple preference and we discussed that baby's are able to learn both if they are able to practice both often. Mom is using a 30mm pump flange per her preference. We reviewed that babies suck differently from a breast and a bottle and that could be the cause of her tongue thrusting. Mom is encouraged to call out for further feeding assistance and if she wants help trying the nipple shield again. RN updated.
--- NOTE | 2024-11-06 12:45 | WPDANLDPN2 ---
Anes-Prog Note L&D Date/Time: 11/06/24 12:45 Comfortable throughout: labor Neuraxial method: epidural Epidural/Spinal procedure site: clean & non-tender Neuro status: Neuro function grossly intact. Cardiovascular status: normal Respiratory status: normal Airway patency: baseline Mental status: baseline Post-Op hydration status: normal Vital Signs: Last Vital Signs Temp 36.6 C 11/06/24 08:44 Pulse 99 11/06/24 08:44 Resp 16 11/06/24 08:44 BP 119/77 11/06/24 08:44 Pulse Ox 99 11/06/24 08:44 O2 Del Method Room Air 11/06/24 08:15 Pain score (VAS): 2 I/O: Intake & Output 11/05/24 11/06/24 11/06/24 23:59 07:59 15:59 Intake Total 350 Balance 350 Post-procedural complaints: none Patient feedback: Patient satisfied with anesthetic care.
[2024-11-06 19:06] VITALS: BP 133/79; PULSE 81; RESP 18; TEMP 36.7; O2SAT 100
[2024-11-07] MEDS: IBUPROFEN 600 MG TABLET PO ×2 (01:00→07:46)
[2024-11-07] MEDS: BENZOCAINE 20% AER SPR (*SP) 56 GM CAN 1 SPRAY TOPICAL (07:41)
[2024-11-07] MEDS: WITCH HAZEL 40 PADS 1 PAD TOPICAL (07:41)
[2024-11-07] MEDS: DOCUSATE SODIUM 100 MG CAPSULE PO (07:42)
[2024-11-07] MEDS: LEVOTHYROXINE SODIUM 25 MCG TABLET PO (07:42)
[2024-11-07] MEDS: buPROPion HCL XL (24 HR) 150 MG TABCR PO (07:42)
[2024-11-07] MEDS: MULTIVIT/MIN/PREN/FOL AC/IRON TABLET 1 TAB PO (07:42)
[2024-11-07 08:00] VITALS: BP 119/85; PULSE 76; RESP 18; TEMP 36.5; O2SAT 100
--- NOTE | 2024-11-07 08:56 | P.PNOB_ITS ---
OB - PN: Subj Subjective Date/time seen: 11/07/24 08:56 Narrative: Pain OK. Would like to go home. OB - PN: Obj Data Labs 11/05/24 04:57 OB - PN A/P Assessment and Plan (1) (normal spontaneous vaginal delivery): Code(s): O80 - Encounter for full-term uncomplicated delivery Status: Acute Plan Comments: A: PPD#2, doing well. P: Home to f/u 6 weeks. Exam 2 Psych: Other: AVSS ABD soft, nontender, fundus firm EXT nontender
[2024-11-09 11:17] VITALS: BP 131/81; PULSE 90; RESP 18; TEMP 36.9; O2SAT 100
== END 2024-11-07 11:11 | disposition home or self-care (01) | DRG 807 ==
LOC: ANHLDR 11-05 00:16 → ANHOB2 11-05 07:57
PROVIDERS: Admitting Provider Obstetrics & Gynecology; PCP Nurse Practitioner Family; Visit Provider Obstetrics & Gynecology
DX: O36.5930 Maternal care for other known or suspected poor fetal growth, third trimester, not applicable or unspecified (principal); Z37.0 Single live birth; O62.3 Precipitate labor; O71.82 Other specified trauma to perineum and vulva; O99.284 Endocrine, nutritional and metabolic diseases complicating childbirth; E03.9 Hypothyroidism, unspecified; O99.344 Other mental disorders complicating childbirth; F32.A Depression, unspecified; O76 Abnormality in fetal heart rate and rhythm complicating labor and delivery; Z3A.40 40 weeks gestation of pregnancy
CPT/HCPCS: 36415; 85014; 85018; 85025; 86593; 86703; 86850; 86900; 86901; A9270; G0432; J2405; J2795; J3010; J7120

== ENCOUNTER 2025-04-17 13:26 | Emergency (ER) | payer OTHER, SELFPAY ==
--- OUTSIDE RECORDS SUMMARY | 2025-04-17 13:33 | XMS_ITS | Encounter Summary ---
Author Organization [facility] Address [address] [place] [address] Care Team Providers Care Remote Sensing Advisor Name Role Phone Hernan Bond MD Primary Care Provider [phone] Mónica De La O [facility] Primary Care Provider + None, Provider Primary Care Provider Yessica Nelson NP Primary Care Provider [phone] Encounter Details Date Type Department Care Team (Late st Contact Info) Description 02/28/2021 ShotSpottert Message Enc [facility] Family & Internal Medicine [facility] [address] [place] [phone] Mónica De La O [id number] [place] [id number] RE: Medication Questions Social History Tobacco Use [...] Rule Out 07/02/2023 07/02/2023 07/02/2023 11:29 AM INDUSTRIAL HYGIENE TECHNICIAN COVID-19 Rule Out 07/02/2023 07/02/2023 07/02/2023 11:32 AM INDUSTRIAL HYGIENE TECHNICIAN COVID-19 Rule Out 07/02/2023 07/02/2023 07/02/2023 1:07 PM INDUSTRIAL HYGIENE TECHNICIAN Respiratory Rule Out 02/22/2025 02/22/2025 025 9:13 AM CDT Assessment Noted Time PHQ-9 Depression Total Score: 0 12/12/19 21 11:11 AM CDT documented as of this encounter Care Teams Remote Sensing Advisor Relationship Specialty [place] [address] [place] [address] PCP - General FAMILY PRACTICE 11/19/18 07/29/21 Mónica De La O FNP- [address] [place] [address] PCP - General Nurse Practitioner Family 07/30/2104/07/23 None, MD Eric PCP - General UNKNOWN PHYSICIAN SPECIALTY 07/02/23 [place] [address] [address] [place] [address] [place] [address] PCP - General Nurse Practitioner Family 07/21/23 documented as of this encounter
--- OUTSIDE RECORDS SUMMARY | 2025-04-17 13:33 | XMS_ITS | Encounter Summary ---
Author Organization [facility] Address [address] [place] [address] Care Team Providers Care Certified Real Estate Appraiser Name Role Phone Chinyerefaizan Mónica [facility] Primary Care Provider + None, Provider Primary Care Provider Yessica Nelson NP Primary Care Provider [phone] Encounter Details Date Type Department Care Team (Late Contact Info) Description 07/04/2022 Lua Message [facility] Family & Internal Medicine [facility] [address] [place] [phone] [employer] Provider Appointment Social History Tobacco Use Types [...] Rule Out 07/02/2023 07/02/2023 07/02/2023 11:29 AM CORONER TECHNICIAN COVID-19 Rule Out 07/02/2023 07/02/2023 07/02/2023 11:32 AM CORONER TECHNICIAN COVID-19 Rule Out 07/02/2023 07/02/2023 07/02/2023 1:07 PM CORONER TECHNICIAN Respiratory Rule Out 02/22/2025 02/22/2025 025 9:13 AM CDT Assessment Noted Time PHQ-9 Depression Total Score: 10 022 2:17 PM CDT documented as of this encounter Care Teams Certified Real Estate Appraiser Relationship Specialty Start Date End Date Mónica De La O FNP- PCP - General Nurse Practitioner Family 07/30/2104/07/23 None, Provider, PCP - General UNKNOWN PHYSICIAN SPECIALTY 07/02/23 Yessica Goldman, PROJECT HIRE [address] [facility] [address] [place] [address] PCP - General Nurse Practitioner Family 07/21/23 documented as of this encounter
--- OUTSIDE RECORDS SUMMARY | 2025-04-17 13:33 | XMS_ITS | Clinical Summary ---
Author Organization [facility] Address [address] [place] [address] Care Team Providers Care Publishing Systems Analyst Name Role Phone Yessica Goldman NP Primary Care Provider Allergies No known active allergies Medications Cholecalciferol (VITAMIN D-3 OR) Take 1,000 mg by mouth daily. Active buPROPion XL (WELLBUTRIN XL) 150 MG 24 hr tabletIndications:G AD (generalized anxiety disorder) Take 1 tablet (150 mg total) by mouth daily. 90 tablet 1 4 Active levothyroxine (SYNTHROID) 25 MCG tablet Take 1 tablet (25 mcg total) by mouth daily. Active aspirin EC (ECOTRIN) 81 MG tablet Take 1 tablet (81 mg total) by mouth daily. Active ( VITAMINS) 28-0.8 MG tablet Take 1 tablet by mouth daily. Active drospirenone-ethiny l estradiol (MARIAH) 3-0.03 MG tablet Take 1 tablet by mouth daily. 5 Active ondansetron (ZOFRAN-ODT) 4 MG disintegrating tabletIndications:N ausea and vomiting, unspecified vomiting type Take 1 tablet (4 mg total) by mouth every 8 (eight) hours as needed for Nausea. 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 02/05/2024 Vaginal delivery 02/09/2023 02/06/2023 Gestational diabetes 02/06/2023 IRAJ (generalized anxiety disorder) 11/22/2021 Moderate episode of recurrent major depressive d isorder 11/22/2021 Obesity 10/02/2017 Resolved Problems Problem Noted Date Diagnosed Date Resolved Date Depression 10/02/2017 11/22/2021 Encounter for preventive health examination 10/02/2017 03/17/2020 Wears contact lenses 10/02/2017 020 Wears glasses 10/02/2017 03/17/2020 Encounters Date Type Department Care Team Description 02/27/2025 Results Follow-Up [facility] Family & Internal Medicine [facility] [address] [place] [phone] Annie Dwyer APRN CULTURE STREP A 02/22/2025 12:46 PM CDT - 02/22/2025 11:59 PM CDT Hospital Encounter [facility] [id number] [place] [address] Annie Dwyer APRN Discharge Disposition: Home or Self Care (Routine Discharge) 02/22/2025 8:40 AM CDT Office Visit [facility] [id number] [place] [phone] Annie Dwyer APRN Sore Throat (X 1 day); Fever; Diarrhea; Vomiting 02/22/2025 Travel 02/03/2025 Scan HEALTH INFO SRVCS Scanned, [facility] Pathology (SCAN) from Last 3 Months Immunizations Immunization [...] Never Smokeless Tobacco: Never Tobacco Cessation:Counseling Given: No Comments:nonsmoker Alcohol Use Standard Drinks/Week Comments Not [...] No 02/06/2023 Social Connection and Isolation Panel Answer Date Recorded In a typical week, how many times do you talk on the phone with family, friends, or neighbors? Three times a week 02/06/2023 How often do you get togethe r with friends or relatives? Three times a week 02/06/2023 How often do you attend [facility] or mu-ism services? Patient declined 02/06/2023 Do you belong [...] place to sleep or slept in a custodial (including now)? No 02/06/2023 Comments No Sex and Gender Information Value [...] Sign Reading Time Taken Comments Blood Pressure 116/76 02/22/2025 8:33 AM CDT Pulse 111 02/22/2025 8:33 AM CDT Temperature 36.3 C (97.4 F) 02/22/2025 8:33 AM CDT Respiratory Rate 20 02/22/2025 8:33 AM CDT Oxygen Saturation 97% 02/22/2025 8:33 AM CDT Inhaled Oxygen Concentration - - Weight 102.5 kg (226 lb) 02/22/2025 8:33 AM CDT Height 162.6 cm (5' 4) 02/22/2025 8:33 AM CDT Body Mass Index 38.79 02/22/2025 8:33 AM CDT Plan of Treatment Health Maintenance Due Date Last Done Comments Cervical Cancer Screening Pap Smear (Age 30 to 64) Every 3 Years 1994 HPV Vaccines (1 - 3-dose SCDM series) 2021 Annual Physical 10/05/2023 10/04/2022 Cervical Cancer Screening Pap with HPV Testing (Age 30 to 64) Every 5 Years 2024 Cervical Cancer Screening with HPV 2024 COVID-19 Vaccine ( season) 2025 03/08/2021, 02/15/2021, 11/16/2020 Influenza Adult (#1) 2025 07/18/2022, 05/28/2013, 07/19/2012 DTaP, Tdap and Td Vaccines (8 - Td or Tdap) 08/09/2034 08/09/2024, 12/09/2022, 02/14/2009, Additional history exists Hepatitis B Vaccines Completed 06/12/1995, 1994, 1994 Meningococcal Vaccine Aged Out 02/14/2009 No ching jose eligible based on patient's age to complete this topic Hepatitis C Completed 03/24/2024, 07/17/2022 PHQ-2 (Physician [place]) Completed 10/25/2024 Meningococcal B Vaccine Aged Out No l [...] Procedure Name Priority Date/Time Associated Diagnosis Comments CULTURE STREP A Routine 02/22/2025 9:33 AM CDT Sore throat CORONAVIRUS (COVID-19) INFLUENZA A & B ANTIGEN IA PANEL Routine 02/22/2025 Suspected COVID-19 virus infection STREP A RAPID Routine 02/22/2025 Sore throat PATHOLOGY GENERIC (SCAN ORDER) 02/03/2025 HEPATITIS C ANTIBODY Routine 03/24/2024 3:17 PM CDT Lactating mother (HHS/HCC) Encounter for other specified screening (HHS/HCC) Obesity complicating peripregnancy, antepartum, unspecified trimester (HHS/HCC) Obesity, unspecified Endocrine, nutritional and metabolic diseases complicating , unspecified trimester (HHS/HCC) from Last 3 Months or Most Recently Relevant to Health Maintenance Results * CULTURE STREP A (02/22/2025 9:33 AM CDT) SPEC DESCRIPTION THROAT 02/22/2025 12:46 PM CDT [facility] SPECIAL REQUESTS NO SPECIAL REQUEST 02/22/2025 12:46 PM CDT [facility] CULTURE RESULT NO STREPTOCOCCUS PYOGENES (GROUP A) ISOLATED 02/24/2025 6:[address] [facility] THROAT SWAB / Unknown 02/22/2025 9:33 AM CDT 02/22/2025 12:56 PM CDT Annie Dwyer STAFF FORESTER MICROBIOLOGY - GENERAL ORD ERABLES Final Result [facility] [address] [facility] [place] [address], [place] [phone] [facility] [address] [place] [address], [place] [phone] * CORONAVIRUS (COVID-19) INFLUENZA A & B ANTIGEN IA PANEL (02/22/2025) CORONAVIRUS ANTIGEN IA NEGATIVE NEGATIVE [id number], [place] INFLUENZA A NEGATIVE NEGATIVE [id number], [place] INFLUENZA B NEGATIVE NEGATIVE [id number], [place] Internal Control: VALID VALID [id number] [place] NASAL STRUCTURE / Unknown 02/22/2025 Annie Dwyer APRN MICROBIOLOGY - GENERAL ORD ERABLES Final Result Performing Organization Address City/[facility]/ZIP Co de Phone Number [phone], [place] [address] [place] [address], [place] [phone] * STREP A RAPID (02/22/2025) RAPID STREP TEST NEGATIVE NEGATIVE [id number], [place] Internal Control: VALID VALID [id number], [place] STRUCTURE OF ANTERIOR REGION OF NECK / Unknown 02/22/2025 Annie Dwyer STAFF FORESTER MICROBIOLOGY - GENERAL ORD ERABLES Final Result [id number] [place] [address] [place] [address], [place] [phone] * PATHOLOGY GENERIC (SCAN ORDER) (02/03/2025) 02/03/2025 [facility] Scanned SCANNING Final Resu lt * HEPATITIS C ANTIBODY (03/24/2024 3:17 PM CDT) HEPATITIS C AB NON-REACTI VE NON-REACTI VE 03/25/2024 12:[address] [facility] 03/24/2024 3:17 PM CDT [facility] Final Result [facility] [address] [place] [address], from Last 3 Months or Most Recently [...] 7:44 AM 01/17/2023 10:14 AM Care Teams Publishing Systems Analyst Relationship Specialty Start [place] [address] [place] [address] PCP - General Nurse Practitioner Family 07/21/23
--- OUTSIDE RECORDS SUMMARY | 2025-04-17 13:33 | XMS_ITS | Clinical Summary ---
Author Organization [facility] Address [address] [place] [address] Care Team Providers Care Torch Cutter Name Role Phone Jennifer Knutson MD Unavailable Source Comments [facility],non-owned Affiliates and Associated Physician Practices is amultiple site organization consisting of ambulatory clinics and hospital sitesin [place], [place], [place] and [place]. This disclosure is being madepursuant to the Care Everywhere program and may not contain all information available regarding this patient. 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 Not hard at all 08/09/2024 [facility] - Occupational Stress Questionnaire Answer Date Recorded [...] things needed for daily living? No 08/09/2024 Dardanelle Depression Scale Answer Date Recorded Dardanelle Depression Scale Total 3 06/21/2024 The thought [...] any time in the past 12 m [facility], were you homeless or living in a skilled nursing (including now)? No 08/09/2024 Comments No Sex and Gender Information Value Date Recorded Sex Assigned at Female 06/20/2024 9:07 AM CREAM DUMPER Legal Sex Female 6:54 AM CREAM DUMPER Gender Identity Female 06/20/2024 9:07 AM CREAM DUMPER Sexual Orientation Straight 06/20/2024 9: 07 AM CREAM DUMPER Last Filed Vital Signs Vital Sign Reading Time Taken Comments Blood Pressure 124/59 09/14/2024 8:31 AM CDT Pulse 92 09/14/2024 8:31 AM CDT Temperature 36.9 C (98.4 F) 05/30/2010 10:57 AM CREAM DUMPER Respiratory Rate 18 09/14/2024 8:31 AM CDT Oxygen Saturation - - Inhaled Oxygen Concentration - - Weight 109.8 kg (242 lb) 09/14/2024 8:31 AM CDT Height 165.1 cm (5' 5) 07/19/2024 8:24 AM CREAM DUMPER Body Mass Index 40.27 07/19/2024 8:24 AM CREAM DUMPER Plan of Treatment Health Maintenance Due Date Last Done Comments HIV SCREENING 2009 PNEUMOCOCCAL VACCINE (1 of 2 - PCV) 2013 PAP SMEAR 2015 HPV VACCINE (1 - 3-dose SCDM series) 2021 DEPRESSION SCREENING 07/07/2024 06/21/2024 COVID-19 VACCINE (3 - season) 2025 03/08/2021, 02/15/2021 INFLUENZA VACCINE (#1) 2025 , 05/28/2013, 07/19/2012 DTAP/TDAP/TD VACCINES (7 - Td or Tdap) 08/09/2034 08/09/2024, 02/14/2009, 01/25/2000, Additional history exists ZOSTER VACCINE (1 of 2) 2044 HEPATITIS B VACCINE Completed 06/12/1995, 1994, 1994 HIB VACCINE Completed 01/19/1996, 02/05, 01/02/1995, Additional history exists MENINGOCOCCAL GROUPS A/C/Y/W VACCINE Aged Out 02/14/2009 No longer eligible based on patient's age to complete this topic HEPATITIS C SCREENING Completed 03/24/2024 MENINGOCOCCAL (Group B) VACCINE SHARED DECISION-MAKING Aged Out No longer eligible based on patient's age to complete this topic Procedures Procedure Name Priority Date/Time Associated Diagnosis Comments GTT 3 HR (100G) GESTATIONAL DIAGNOSTIC 08/11/2024 7:30 AM CREAM DUMPER from Last 3 Months or Most Recently Relevant to Health Maintenance Results * (ABNORMAL) GTT 3 HR (100G) GESTATIONAL DIAGNOSTIC (08/11/2024 7:30 AM CREAM DUMPER) Glucose Fasting GTT 82 65 - 94 mg/dL [facility] GTT 1Hr 176 <180 mg/dL [facility] Glucose 2Hr 128 <155 mg/dL [facility] GTT 3 Hr 42(L) <140 mg/dL [facility] Comment: Norton/Coustan Criteria: Two or more values greater than the above reference intervals are suggestive of gestational diabetes. REPORT COMMENT: FASTING:YES Test Performed at: [facility] [id number] YADIRA JUAREZ MD 08/11/2024 7:30 AM CREAM DUMPER 08/11/2024 7:30 AM CREAM DUMPER Loretta Roach MD LAB - CHEMISTRY ORDERABLES Final Result [facility] [id number] [place] [address] from Last 3 Months or Most Recently Relevant to Health Maintenance Insurance [employer] Care Teams Torch Cutter Relationship Specialty Start Date End Date Jennifer Knutson MD PCP - Pediatrics 08/15/09
--- OUTSIDE RECORDS SUMMARY | 2025-04-17 13:33 | XMS_ITS | Clinical Summary ---
Author Organization [facility] [employer] Address [address] [place] [id number] Care Team Providers Care Armhole Baster Jumpbasting Name Role Phone Hernan Bond MD Primary Care Provide r Active Problems No known active problems Encounters Date Type Department Care Team Description 04/05/2025 External Device Data [facility] ABSTRACTION Provider, Abstract 02/09/2025 External Device Data [facility] ABSTRACTION Provider, Abstract 02/08/2025 External Device Data [facility] ABSTRACTION Provider, Abstract 01/19/2025 External Device Data [facility] ABSTRACTION Provider, Abstract 01/18/2025 External Device Data [facility] ABSTRACTION Provider, Abstract [...] Comments Blood Pressure 110/58 08/31/2024 9:24 AM CARTRIDGE GAUGER Pulse - - Temperature - - Respiratory Rate - - Oxygen Saturation - - Inhaled Oxygen Concentration - - Weight 111.1 kg (245 lb) 08/31/2024 9:24 AM CARTRIDGE GAUGER Height 165.1 cm (5' 5) 08/31/2024 9:24 AM CARTRIDGE GAUGER Body Mass Index 40.77 08/31/2024 9:24 AM CARTRIDGE GAUGER Plan of Treatment Health Maintenance Due Date Last Done Comments HPV/Cotest (-) 2015 HPV VACCINES (1 - 3-dose SCD M series) 2021 CERVICAL CANCER SCREENING 2024 HPV/Cotest (30-65) 2024 PAP SMEAR 2024 INFLUENZA VACCINE (#1) 2025 COVID-19 Vaccine (2024-2 6 season) 2025 02/15/2021 DTAP/TDAP/TD VACCINES (7 - T d or Tdap) 08/09/2034 08/09/2024, 01/25/2000, 01/19/1996, Additional history exists HEPATITIS B VACCINES Completed 06/12/1995, 1994, 1994 Insurance [facility] OPEN ACCESS Care Teams Armhole Baster Jumpbasting Relationship Specialty [place] [address] [place] [address] PCP - General Family Practice 11/25/23
[2025-04-17 13:45] VITALS: BP 132/88; PULSE 112; RESP 18; TEMP 36.7; O2SAT 98
--- NOTE | 2025-04-17 15:00 | ED_ITS ---
HPI - Skin/Abscess/Foreign Bdy General Chief complaint: Skin/Abscess/Foreign Body Stated complaint: Rash Time Seen by Provider: 04/17/25 13:57 Source: patient and RN notes reviewed Mode of arrival: ambulatory Limitations: no limitations History of Present Illness HPI narrative: Patient presents today complaining of painful and swollen tonsils with scratchy throat that started this morning. No OTC treatment prior to arrival. Child diagnosed with HFM today. Currently rates her pain 09/13. Denies any additional symptoms. Related Data Allergies Allergy/AdvReac Type Severity Reaction Status Date / Time banana AdvReac Intermediate Gastrointestinal Verified 04/17/25 14:05 Upset PMFSH Past Medical History Medical History History of gestational diabetes mellitus (GDM) in prior , currently History of hypothyroidism History of anxiety History of depression Surgical History Surgical History History of orthopedic surgery Right knee Social History Social History Smoking status: Never smoker Substance use: never Do You Feel Safe in your Home?: Yes Lack of Transportation: No Lack of Food: Never True Current Housing: I Have Housing Concerned About Future Housing: No Difficulty Paying Gas/Electric Bills: No Difficulty Paying for Meds: No Currently Unemployed: No Education: Associate Degree Difficulty w/ Childcare or Family Care: No Spiritual care concerns: No Comments At time of signature, I have reviewed and agree with nursing past medical, surgical, social and family history unless otherwise noted. Please see nursing chart for further information. There is no relevant family history pertinent to the presenting complaint Exam Narrative: GENERAL: Well-appearing, well-nourished, and in no acute distress. HEAD: Normocephalic, atraumatic. EYES: EOMI. No redness or drainage. Conjunctivae normal. ENT: Mucous membranes pink and moist. Nares clear. No rhinorrhea. TMs normal bilaterally. Erythematous tonsils measuring 3+ without exudate. Uvula midline. NECK: Normal AROM. Supple. No lymphadenopathy. CHEST: No respiratory distress. Clear to auscultation. HEART: Regular rate and rhythm. No murmur appreciated. EXTREMITIES: Normal range of motion. No edema. SKIN: Warm, dry, no rash. Capillary refill normal. Normal skin turgor. NEURO: No focal deficits. Alert and oriented x3. Gait steady. PSYCH: Normal affect. No signs of depression or anxiety. Course Course Level of Care: Express Care Visit Vital Signs Vital signs: Vital Signs Temperature 98.1 F 04/17/25 13:45 Pulse Rate 112 H 04/17/25 13:45 Respiratory Rate 18 04/17/25 13:45 Blood Pressure 132/88 04/17/25 13:45 Pulse Oximetry 98 04/17/25 13:45 Oxygen Delivery Room Air 04/17/25 13:45 Temperature 98.1 F 04/17/25 13:45 Pulse Rate 112 H 04/17/25 13:45 Respiratory Rate 18 04/17/25 13:45 Blood Pressure 132/88 04/17/25 13:45 Pulse Oximetry 98 04/17/25 13:45 Oxygen Delivery Room Air 04/17/25 13:45 Reviewed MDM - Skin/Abscess/Foreign Bdy MDM Narrative Medical decision making narrative: 29-year-old female patient presents today complaining scratchy and swollen throat since this morning. No OTC treatment prior to arrival. Child diagnosed with Hand Foot Mouth today. Upon exam, patient is tonsils are 3+ and erythematous without exudate. Due to exposure, patient likely has beginnings of [id number]. Discussed duration of illness and OTC treatment. She does h ave experiencing with this illness in the past. Signs stable. Anticipatory guidance given. Differential Diagnosis Differential diagnosis: Likely other (Pharyngitis, strep throat, [id number]) Critical Care Time Critical Care Time Critical Care Time: No Discharge Plan Discharge Clinical Impression: Hand, foot and mouth disease (HFMD) Patient Disposition: Home Condition: Stable Instructions: Hand, Foot, and Mouth Disease (ED) Additional Instructions: Your throat symptoms could be early [id number]. Take [id number] medication for discomfort. Follow-up with your PCP with any additional concerns. Patient Language: [place] Island[place] Prescriptions: No Action levothyroxine 25 mcg tablet 25 mcg PO DAILY Qty: 90 1RF bupropion HCl 150 mg tablet extended release 24 hr 150 mg PO DAILY Qty: 90 1RF Follow-up/Referrals: Susi,Yessica Coles APRN [Primary Care Provider, [facility]] Time of Disposition: 14:20
== END 2025-04-17 14:25 | disposition home or self-care (01) ==
PROVIDERS: Emergency Provider Nurse Practitioner; PCP Nurse Practitioner Family
DX: B08.4 Enteroviral vesicular stomatitis with exanthem (principal); E03.9 Hypothyroidism, unspecified; F41.9 Anxiety disorder, unspecified; F32.A Depression, unspecified
CPT/HCPCS: 99211; G0463